=== PATIENT | female | born 1930 | race Caucasian/White ===

== ENCOUNTER 2019-01-23 19:36 | Inpatient (IN) | payer MEDICARE ==
--- NOTE | 2019-01-23 20:19 | EDM.PDOC ---
ED HPI GENERAL MEDICAL PROBLEM - General Chief Complaint: Chest Pain Stated Complaint: MED[facility] Time Seen by Provider: 01/23/19 20:14 Source of Information: Reports: Patient History Limitations: Reports: No Limitations - History of Present Illness INITIAL COMMENTS - FREE TEXT/NARRATIVE: pt arrived with pain or tightness in her chest ans she felt like her heart was racing. She had a ekg in the ambulance and it showed atrial fib in the 122 range. She did convert on her own in the ambulance. She arrived in a sinus rhythm with a rate of 74. Pt did take asa at home. She is not on any other blood thinner. Onset: Today, Sudden, Other (pt has had another episode of atrial fib when she was under anesthesia for her hip replacement. ) Duration: Hour(s): Location: Reports: Chest Associated Symptoms: Reports: Chest Pain, Other ( rapid heart beat. this did seem irregular to her. ) Treatments ROUTE DELIVERY CLERK: Reports: IV/IO, Other (see below) Other Treatments ROUTE DELIVERY CLERK: fluids - Related Data Allergies Allergy/AdvReac Type Severity Reaction Status Date / Time No Known Allergies Allergy Verified 01/13/15 08:36 Home Meds: Home Meds Aspirin [Aspirin EC] 325 mg PO DAILY 01/23/19 [History] Cyanocobalamin (Vitamin B-12) [B-12] 1,000 mcg PO DAILY 01/23/19 [History] Diphenhydram/PE/DM/Acetamin/GG [Daytime-Cold Zgbrccchr-Azs-Iwb] 1 tab PO PRN [History] Ergocalciferol (Vitamin D2) [Vitamin D2] 400 unit PO DAILY 01/23/19 [History] Escitalopram [Lexapro] 10 mg PO DAILY 01/23/19 [History] Metoprolol Tartrate 12.5 mg PO BID 01/23/19 [History] Triamterene/Hydrochlorothiazid [Triamterene-HCTZ 37.5-25 MG] 1 each PO DAILY [History] Past Medical History HEENT History: Reports: Impaired Vision, Macular Degeneration Cardiovascular History: Reports: High Cholesterol, Hypertension Gastrointestinal History: Reports: Other (See Below) Other Gastrointestinal History: colitis [employer]GER [employer] History: Reports: Musculoskeletal History: Reports: Arthritis - Past Surgical History Other HEENT Surgeries/Procedures: shots in her eyes Other Musculoskeletal Surgeries/Procedures:: surgery on neck many years ago Social & Family History - Tobacco Use Smoking Status *Q: Current Every Day Smoker Years of Tobacco use: 40 Packs/Tins Daily: 0.5 Used Tobacco, but Quit: No Second Hand Smoke Exposure: No - Caffeine Use Caffeine Use: Reports: None - Alcohol Use Days Per Week of Alcohol Use: 7 Number of Drinks Per Day: 2 Total Drinks Per Week: 14 - Recreational Drug Use Recreational Drug Use: No ED ROS GENERAL - Review of Systems Review Of Systems: See Below Constitutional: Reports: No Symptoms HEENT: Reports: No Symptoms Respiratory: Reports: Shortness of Breath, Other (pt was mildly sob when she had the rapid rhythm. ) Cardiovascular: Reports: Palpitations, Other ( chest tightness. ) Endocrine: Reports: No Symptoms GI/Abdominal: Reports: No Symptoms : Reports: No Symptoms Musculoskeletal: Reports: No Symptoms Skin: Reports: No Symptoms Neurological: Reports: Dizziness, Other (pt noticed this after arrival when she went to sit up. ) Psychiatric: Reports: No Symptoms ED EXAM, GENERAL - Physical Exam Exam: See Below Free Text/Narrative:: pt arrived with a history of a episode of atrial fib which converted in the ambulance. She had some chest tightness prior to conversion but that stopped when she converted. She was painfree on arrival. Exam Limited By: No Limitations General Appearance: Alert, Anxious Ears: Normal TMs Nose: Normal Inspection Throat/Mouth: Normal Inspection Head: Atraumatic Neck: Normal Inspection Respiratory/Chest: No Respiratory Distress Cardiovascular: Regular Rate, Rhythm, Other ( controlled rate. ) GI/Abdominal: Soft, Non-Tender (Female) Exam: Deferred Rectal (Female) Exam: Deferred Back Exam: Normal Inspection Extremities: Normal Inspection Neurological: Alert, Oriented, Normal Cognition Psychiatric: Normal Affect Course - Vital Signs Last Recorded V/S: Last Vital Signs Temp 35.8 C 01/23/19 19:51 Pulse 104 H 01/23/19 22:37 Resp 15 01/23/19 22:37 BP 161/105 H 01/23/19 22:37 Pulse Ox 96 01/23/19 22:37 Orthostatic Blood Pressure [ 169/76 Standing] Orthostatic Blood Pressure [ 157/88 Sitting] Orthostatic Blood Pressure [ 157/76 Supine] - Orders/Labs/Meds Orders: Active Orders 24 hr Category Date Time Status EKG Documentation Completion [RC] ASDIRECTED Care 01/23/19 19:49 Active Orthostatic Vital Signs [RC] ASDIRECTED Care 01/23/19 20:55 Active Sodium Chloride 0.9% [Normal Saline] 1,000 ml Med 01/23/19 20:30 Active IV ASDIRECTED EKG 12 Lead [EK] Routine Ther 01/23/19 19:48 Ordered Medication Orders Sodium Chloride (Normal Saline) 1,000 mls @ 250 mls/hr IV ASDIRECTED KEV Last Admin: 01/23/19 20:32 Dose: 250 mls/hr Labs: Laboratory Tests 01/23/19 01/23/19 01/23/19 Range/Units 19:48 19:48 20:23 WBC 10.5 (4.5-11.0) K/uL RBC 3.95 (3.30-5.50) M/uL Hgb 12.8 (12.0-15.0) g/dL Hct 38.2 (36.0-48.0) % MCV 97 (80-98) fL MCH 32 H (27-31) pg MCHC 34 (32-36) % Plt Count 269 (150-400) K/uL Neut % (Auto) 62 (36-66) % Lymph % (Auto) 25 (24-44) % [place] % (Auto) 12 H (2-6) % Eos % (Auto) 1 L (2-4) % Baso % (Auto) 0 (0-1) % Sodium 135 L (140-148) mmol/L Potassium 3.8 (3.6-5.2) mmol/L Chloride 98 L (100-108) mmol/L Carbon Dioxide 28 (21-32) mmol/L Anion Gap 12.8 (5.0-14.0) mmol/L BUN 9 (7-18) mg/dL Creatinine 0.5 L (0.6-1.0) mg/dL Est Cr Clr Drug Dosing 69.98 mL/min Estimated GFR (MDRD) > 60 (>60) Glucose 110 H (74-106) mg/dL Calcium 8.9 (8.5-10.1) mg/dL Total Bilirubin 0.2 (0.2-1.0) mg/dL AST 18 (15-37) U/L ALT 19 (12-78) U/L Alkaline Phosphatase 80 (46-116) U/L Troponin I (0.000-0.056) ng/mL Total Protein 6.6 (6.4-8.2) g/dL Albumin 3.4 (3.4-5.0) g/dL Globulin 3.2 (2.3-3.5) g/dL Albumin/Globulin Ratio 1.1 L (1.2-2.2) TSH, Ultra Sensitive 1.533 (0.358-3.740) uIU/mL Urine Color Urine Appearance Urine pH (4.5-8.0) Ur Specific [place] (1.008-1.030) Urine Protein (NEGATIVE) mg/dL Urine Glucose (UA) (NEGATIVE) mg/dL Urine Ketones (NEGATIVE) mg/dL Urine Occult Blood (NEGATIVE) Urine Nitrite (NEGATIVE) Urine Bilirubin (NEGATIVE) Urine Urobilinogen (NORMAL) mg/dL Ur Leukocyte Esterase (NEGATIVE) Urine RBC (0-5) Urine WBC (0-5) Ur Epithelial Cells Amorphous Sediment Urine Bacteria Urine Mucus 01/23/19 01/23/19 Range/Units 20:32 21:05 WBC (4.5-11.0) K/uL RBC (3.30-5.50) M/uL Hgb (12.0-15.0) g/dL Hct (36.0-48.0) % MCV (80-98) fL MCH (27-31) pg MCHC (32-36) % Plt Count (150-400) K/uL Neut % (Auto) (36-66) % Lymph % (Auto) (24-44) % [place] % (Auto) (2-6) % Eos % (Auto) (2-4) % Baso % (Auto) (0-1) % Sodium (140-148) mmol/L Potassium (3.6-5.2) mmol/L Chloride (100-108) mmol/L Carbon Dioxide (21-32) mmol/L Anion Gap (5.0-14.0) mmol/L BUN (7-18) mg/dL Creatinine (0.6-1.0) mg/dL Est Cr Clr Drug Dosing mL/min Estimated GFR (MDRD) (>60) Glucose (74-106) mg/dL Calcium (8.5-10.1) mg/dL Total Bilirubin (0.2-1.0) mg/dL AST (15-37) U/L ALT (12-78) U/L Alkaline Phosphatase (46-116) U/L Troponin I < 0.017 (0.000-0.056) ng/mL Total Protein (6.4-8.2) g/dL Albumin (3.4-5.0) g/dL Globulin (2.3-3.5) g/dL Albumin/Globulin Ratio (1.2-2.2) TSH, Ultra Sensitive (0.358-3.740) uIU/mL Urine Color Yellow Urine Appearance Clear Urine pH 8.0 (4.5-8.0) Ur Specific [place] 1.005 L (1.008-1.030) Urine Protein Trace (NEGATIVE) mg/dL Urine Glucose (UA) Normal (NEGATIVE) mg/dL Urine Ketones Negative (NEGATIVE) mg/dL Urine Occult Blood Trace (NEGATIVE) Urine Nitrite Negative (NEGATIVE) Urine Bilirubin Negative (NEGATIVE) Urine Urobilinogen Normal (NORMAL) mg/dL Ur Leukocyte Esterase Small (NEGATIVE) Urine RBC 0-5 (0-5) Urine WBC 0-5 (0-5) Ur Epithelial Cells Rare Amorphous Sediment Rare Urine Bacteria Not seen Urine Mucus Rare Meds: Medications Generic Name Dose Route Start Last Admin Trade Name Freq PRN Reason Stop Dose Admin Sodium Chloride 1,000 mls @ 250 mls/hr 01/23/19 20:30 01/23/19 20:32 Normal Saline IV 250 mls/hr ASDIRECTED KEV Administration Discontinued Medications Generic Name Dose Route Start Last Admin Trade Name Freq PRN Reason Stop Dose Admin Diltiazem HCl 10 mg 01/23/19 22:26 01/23/19 22:43 Diltiazem IVPUSH 01/23/19 22:27 10 mg ONETIME ONE Administration Metoprolol Tartrate 12.5 mg 01/23/19 21:49 01/23/19 21:55 Lopressor PO 01/23/19 21:50 12.5 mg ONETIME ONE Administration - Re-Assessments/Exams Free Text/Narrative Re-Assessment/Exam: 01/23/19 21:55 pt had normal looking lab work. She was in sinus rhythm on arrival and she has remained in sinus rhythm. She was given iv fluid and she was given metoprol 12.5 mg. Departure - Departure Time of Disposition: 21:57 Disposition: Admitted As Inpatient 66 Condition: Fair Clinical Impression: Atrial fibrillation Instructions: Atrial Fibrillation, [id number] Referrals: PCP,None [Primary Care Provider] - Forms: ED Department Discharge Care Plan Goals: atrial fib that converted on its own, increase the metorprol 2 tabs{12.5 tabs in the am and 1 tab in the pm, appt with Dr Godinez on Sunday in [place].just as the pt was ready to leave she went back into atrial fib with a rate of 120. She once again felt strange. At this point she was informed that she needed to be admitted. She was given a bolus of cardizem 10mg iv to see if she would convert again. - My Orders Last 24 Hours: My Active Orders 01/23/19 19:48 EKG 12 Lead [EK] Routine 01/23/19 19:49 EKG Documentation Completion [RC] ASDIRECTED 01/23/19 20:30 Sodium Chloride 0.9% [Normal Saline] 1,000 ml IV ASDIRECTED 01/23/19 20:55 Orthostatic Vital Signs [RC] ASDIRECTED - Assessment/Plan Last 24 Hours: My Active Orders 01/23/19 19:48 EKG 12 Lead [EK] Routine 01/23/19 19:49 EKG Documentation Completion [RC] ASDIRECTED 01/23/19 20:30 Sodium Chloride 0.9% [Normal Saline] 1,000 ml IV ASDIRECTED 01/23/19 20:55 Orthostatic Vital Signs [RC] ASDIRECTED
[2019-01-23] MEDS: Sodium Chloride 0.9% 1,000 ML IV SCH ×2 (20:32→22:57)
--- NOTE | 2019-01-23 20:50 | CRLCR ---
INDICATION: Atrial fibrillation. FINDINGS: An AP view of the chest was obtained. The cardiac silhouette and pulmonary vasculature are within normal limits. The lungs are clear bilaterally. There are atherosclerotic calcifications in the aorta. There is scoliosis and degenerative changes in the spine. IMPRESSION: No evidence of acute pulmonary disease. Dictated by Connor Honeycutt MD @ 01/23/2019 8:48:37 PM Dictated by: Connor Honeyuctt MD @ 01/23/2019 20:48:50 (Electronically Signed)
[2019-01-23] MEDS ORDERED: Metoprolol Tartrate 25 MG Tab PO ONE (21:49)
[2019-01-23] MEDS ORDERED: Diltiazem 25 MG/5 ML SDV IVPUSH ONE (22:26)
[2019-01-23] MEDS ORDERED: Diltiazem IR 30 MG Tab PO ONE (23:26)
--- NOTE | 2019-01-24 00:11 | PCM.HP ---
H&P History of Present Illness - General Date of Service: 01/23/19 Admit Problem/Dx: Admission Diagnosis/Problem Admission Diagnosis/Problem Atrial fibrillation Source of Information: Patient, EMS Notes Reviewed, Provider, RN History Limitations: Reports: No Limitations - History of Present Illness Initial Comments - Free Text/Narative: INITIAL COMMENTS - FREE TEXT/NARRATIVE: Arrived via EMS Mrs. Byrnes arrived with pain or tightness in her chest ans she felt like her heart was racing. She had a EKG in the ambulance and it showed atrial fib in the 122 range. She did convert on her own in the ambulance. She arrived in a sinus rhythm with a rate of 74. She took ASA at home. She is not on any other blood thinner. past history:Atrial fib when she was under anesthesia for her hip replacement. ER Course: Atrial fIb that converted on its own, planned to discharge to home with Son Gómez , with instructions to increase the Metoprol 2 tabs of 12.5 tabs in the am and 1 tab in the pm, appt with Dr Godinez on Sunday in [place]. Just as the pt was ready to leave she went back into Atrial Fib with a rate of 120. She once again felt strange. Denies chest pain, shortness of breath. At this point she was informed that she needed to be admitted. She was given a bolus of Cardizem 10mg IV to see if she would convert again. Continues to have Atrial Fib rate in 70 to 90. denies chest pain or shortness of breath. Vital signs P85 RR 14 B/P 144/75 O2 sat 95% on room air Consulted with Dr. Muro, Internal Medicine, Hospitalist, will plan to admit to ICU Med-Surg Overflow OBS for further monitoring. will give Diltiazem IR 60 mg every 6 hours, first dose given in ER discussed plan of care with Mrs. Byrnes, she agree to admission Observation. Onset of Symptoms: Reports: Today, Sudden Duration of Symptoms: Reports: Hour(s):, Constant Location: Reports: Generalized Quality: Reports: Other (concerns of racing heart beat and strange feeling in chest.) Severity: Moderate Improves with: Reports: Medication Worsens with: Reports: None Context: Reports: Other (sudden onset of A Fib without cause) Associated Symptoms: Reports: No Other Symptoms - Related Data Allergies/Adverse Reactions: Allergies Allergy/AdvReac Type Severity Reaction Status Date / Time No Known Allergies Allergy Verified 01/13/15 08:36 Home Medications: Home Meds Aspirin [Aspirin EC] 325 mg PO DAILY 01/23/19 [History] Cyanocobalamin (Vitamin B-12) [B-12] 1,000 mcg PO DAILY 01/23/19 [History] Diphenhydram/PE/DM/Acetamin/GG [Daytime-Cold Mbdcobljs-Jux-Ltw] 1 tab PO PRN [History] Ergocalciferol (Vitamin D2) [Vitamin D2] 400 unit PO DAILY 01/23/19 [History] Escitalopram [Lexapro] 10 mg PO DAILY 01/23/19 [History] Metoprolol Tartrate 12.5 mg PO BID 01/23/19 [History] Triamterene/Hydrochlorothiazid [Triamterene-HCTZ 37.5-25 MG] 1 each PO DAILY [History] Past Medical History HEENT History: Reports: Impaired Vision, Macular Degeneration Cardiovascular History: Reports: High Cholesterol, Hypertension Gastrointestinal History: Reports: Other (See Below) Other Gastrointestinal History: colitis S[employer] FIL[employer]ER History: Reports: Musculoskeletal History: Reports: Arthritis - Past Surgical History Other HEENT Surgeries/Procedures: shots in her eyes Other Musculoskeletal Surgeries/Procedures:: surgery on neck many years ago Social & Family History - Tobacco Use Smoking Status *Q: Current Every Day Smoker Years of Tobacco use: 40 Packs/Tins Daily: 0.5 Used Tobacco, but Quit: No Second Hand Smoke Exposure: No - Caffeine Use Caffeine Use: Reports: None - Alcohol Use Days Per Week of Alcohol Use: 7 Number of Drinks Per Day: 2 Total Drinks Per Week: 14 - Recreational Drug Use Recreational Drug Use: No - Living Situation & Occupation Living situation: Reports: , with Family Occupation: Retired (has her own home in [place], her Son Gómez lives with her. Has one Daughter in [place], her Oldest Son got sick and 3 years ago.) H&P Review of Systems - Review of Systems: Review Of Systems: See Below General: Reports: Other (no concerns at this time of admission. ) HEENT: Reports: No Symptoms Pulmonary: Reports: No Symptoms Cardiovascular: Reports: Palpitations Gastrointestinal: Reports: No Symptoms Genitourinary: Reports: No Symptoms Musculoskeletal: Reports: No Symptoms Skin: Reports: No Symptoms Psychiatric: Reports: No Symptoms Neurological: Reports: Dizziness (reports chronic dizziness. has been evaluated with no cause. ambulates with walker for stability.) Hematologic/Lymphatic: Reports: No Symptoms Immunologic: Reports: No Symptoms Exam - Exam Exam: See Below - Vital Signs Vital Signs: Last Vital Signs Temp 35.8 C 01/23/19 19:51 Pulse 85 01/23/19 23:35 Resp 14 01/23/19 23:35 BP 144/75 H 01/23/19 23:35 Pulse Ox 95 01/23/19 23:35 Orthostatic Blood Pressure [ 169/76 Standing] Orthostatic Blood Pressure [ 157/88 Sitting] Orthostatic Blood Pressure [ 157/76 Supine] Weight: 63.503 kg - Exam General: Alert, Oriented, 4 HEENT: PERRLA, Conjunctiva Clear, EACs Clear, EOMI, Hearing Intact, Mucosa Moist & [place], Nares Patent, Normal Nasal Septum, Posterior Pharynx Clear, TMs Clear, Glasses, Other (natural teeth present) Neck: Supple, Trachea Midline, 2 Lungs: Clear to Auscultation, Normal Respiratory Effort Cardiovascular: Irregular Rhythm GI/Abdominal Exam: Normal Bowel Sounds, Soft, Non-Tender, No Organomegaly, No Distention, No Abnormal Bruit, No Mass, Pelvis Stable (Female) Exam: Deferred Rectal (Female) Exam: Deferred Back Exam: Normal Inspection, Full Range of Motion, NT Extremities: Normal Inspection, Normal Range of Motion, Non-Tender, No Pedal Edema, Normal Capillary Refill Skin: Warm, Dry, Intact, Other (Lady Slipper tatto noted to right lower leg) Neurological: Reflexes Equal Bilateral, Strength Equal Bilateral, Normal Speech , Normal Tone Neuro Extensive - Mental Status: Alert, Oriented x3, Normal Mood/Affect, Normal Cognition Neuro Extensive - Motor, Sensory, Reflexes: CN II-XII Intact, Normal Gait, Normal Reflexes Psychiatric: Alert, Normal Affect, Normal Mood - Patient Data Lab Results Last 24 hrs: Laboratory Results - last 24 hr 01/23/19 01/23/19 01/23/19 Range/Units 19:48 19:48 20:23 WBC 10.5 (4.5-11.0) K/uL RBC 3.95 (3.30-5.50) M/uL Hgb 12.8 (12.0-15.0) g/dL Hct 38.2 (36.0-48.0) % MCV 97 (80-98) fL MCH 32 H (27-31) pg MCHC 34 (32-36) % Plt Count 269 (150-400) K/uL Neut % (Auto) 62 (36-66) % Lymph % (Auto) 25 (24-44) % [place] % (Auto) 12 H (2-6) % Eos % (Auto) 1 L (2-4) % Baso % (Auto) 0 (0-1) % Sodium 135 L (140-148) mmol/L Potassium 3.8 (3.6-5.2) mmol/L Chloride 98 L (100-108) mmol/L Carbon Dioxide 28 (21-32) mmol/L Anion Gap 12.8 (5.0-14.0) mmol/L BUN 9 (7-18) mg/dL Creatinine 0.5 L (0.6-1.0) mg/dL Est Cr Clr Drug Dosing 69.98 mL/min Estimated GFR (MDRD) > 60 (>60) Glucose 110 H (74-106) mg/dL Calcium 8.9 (8.5-10.1) mg/dL Total Bilirubin 0.2 (0.2-1.0) mg/dL AST 18 (15-37) U/L ALT 19 (12-78) U/L Alkaline Phosphatase 80 (46-116) U/L Troponin I (0.000-0.056) ng/mL Total Protein 6.6 (6.4-8.2) g/dL Albumin 3.4 (3.4-5.0) g/dL Globulin 3.2 (2.3-3.5) g/dL Albumin/Globulin Ratio 1.1 L (1.2-2.2) TSH, Ultra Sensitive 1.533 (0.358-3.740) uIU/mL Urine Color Urine Appearance Urine pH (4.5-8.0) Ur Specific [place] (1.008-1.030) Urine Protein (NEGATIVE) mg/dL Urine Glucose (UA) (NEGATIVE) mg/dL Urine Ketones (NEGATIVE) mg/dL Urine Occult Blood (NEGATIVE) Urine Nitrite (NEGATIVE) Urine Bilirubin (NEGATIVE) Urine Urobilinogen (NORMAL) mg/dL Ur Leukocyte Esterase (NEGATIVE) Urine RBC (0-5) Urine WBC (0-5) Ur Epithelial Cells Amorphous Sediment Urine Bacteria Urine Mucus 01/23/19 01/23/19 Range/Units 20:32 21:05 WBC (4.5-11.0) K/uL RBC (3.30-5.50) M/uL Hgb (12.0-15.0) g/dL Hct (36.0-48.0) % MCV (80-98) fL MCH (27-31) pg MCHC (32-36) % Plt Count (150-400) K/uL Neut % (Auto) (36-66) % Lymph % (Auto) (24-44) % [place] % (Auto) (2-6) % Eos % (Auto) (2-4) % Baso % (Auto) (0-1) % Sodium (140-148) mmol/L Potassium (3.6-5.2) mmol/L Chloride (100-108) mmol/L Carbon Dioxide (21-32) mmol/L Anion Gap (5.0-14.0) mmol/L BUN (7-18) mg/dL Creatinine (0.6-1.0) mg/dL Est Cr Clr Drug Dosing mL/min Estimated GFR (MDRD) (>60) Glucose (74-106) mg/dL Calcium (8.5-10.1) mg/dL Total Bilirubin (0.2-1.0) mg/dL AST (15-37) U/L ALT (12-78) U/L Alkaline Phosphatase (46-116) U/L Troponin I < 0.017 (0.000-0.056) ng/mL Total Protein (6.4-8.2) g/dL Albumin (3.4-5.0) g/dL Globulin (2.3-3.5) g/dL Albumin/Globulin Ratio (1.2-2.2) TSH, Ultra Sensitive (0.358-3.740) uIU/mL Urine Color Yellow Urine Appearance Clear Urine pH 8.0 (4.5-8.0) Ur Specific [place] 1.005 L (1.008-1.030) Urine Protein Trace (NEGATIVE) mg/dL Urine Glucose (UA) Normal (NEGATIVE) mg/dL Urine Ketones Negative (NEGATIVE) mg/dL Urine Occult Blood Trace (NEGATIVE) Urine Nitrite Negative (NEGATIVE) Urine Bilirubin Negative (NEGATIVE) Urine Urobilinogen Normal (NORMAL) mg/dL Ur Leukocyte Esterase Small (NEGATIVE) Urine RBC 0-5 (0-5) Urine WBC 0-5 (0-5) Ur Epithelial Cells Rare Amorphous Sediment Rare Urine Bacteria Not seen Urine Mucus Rare Result Diagrams: 01/23/19 19:48 01/23/19 19:48 EKG INTERPRETATION Rhythm: A-Fib - Problem List (1) Atrial fibrillation SNOMED Code(s): 40793291 ICD Code: I48.91 - UNSPECIFIED ATRIAL FIBRILLATION Status: Acute Priority : High Current Visit: Yes Qualifiers: Atrial fibrillation type: unspecified Qualified Code(s): I48.91 - Unspecified atrial fibrillation (2) Hypertension SNOMED Code(s): 55274839 ICD Code: I10 - ESSENTIAL (PRIMARY) HYPERTENSION Status: Acute Priority: High Current Visit: Yes Qualifiers: Hypertension type: essential hypertension Qualified Code(s): I10 - Essential (primary) hypertension Problem List Initiated/Reviewed/Updated: Yes Orders Last 24hrs: Active Orders 24 hr Category Date Time Status Patient Status Manage Transfer [TRANSFER] Routine ADT 01/23/19 23:51 Ordered EKG Documentation Completion [RC] ASDIRECTED Care 01/23/19 19:49 Active EKG Documentation Completion [RC] ASDIRECTED Care 01/23/19 23:02 Active Orthostatic Vital Signs [RC] ASDIRECTED Care 01/23/19 20:55 Active Sodium Chloride 0.9% [Normal Saline] 1,000 ml Med 01/23/19 20:30 Active IV ASDIRECTED Resuscitation Status Routine Resus Stat 01/23/19 23:53 Ordered EKG 12 Lead [EK] Routine Ther 01/23/19 19:48 Ordered EKG 12 Lead [EK] Routine Ther 01/23/19 23:01 Ordered Medication Orders Sodium Chloride (Normal Saline) 1,000 mls @ 250 mls/hr IV ASDIRECTED KEV Last Admin: 01/23/19 22:57 Dose: 250 mls/hr Infusion: 01/23/19 22:57 Dose: 250 mls/hr Admin: 01/23/19 20:32 Dose: 250 mls/hr Assessment/Plan Comment:: ASSESSMENT / PLAN: Atrial Fib. Mrs. Byrnes arrived with pain or tightness in her chest and she felt like her heart was racing. She had a EKG in the ambulance and it showed Atrial Fib in the 122 range. She did convert on her own in the ambulance. She arrived in a sinus rhythm with a rate of 74. She took ASA at home. She is not on any other blood thinner. past history:Atrial fib when she was under anesthesia for her hip replacement. ER Course: Atrial fIb that converted on its own, planned to discharge to home with Son Gómez , with instructions to increase the Metoprol 2 tabs of 12.5 tabs in the am and 1 tab in the pm, appt with Dr Godinez on Sunday in [place]. Just as the pt was ready to leave she went back into Atrial Fib with a rate of 120. She once again felt strange. Denies chest pain, shortness of breath. At this point she was informed that she needed to be admitted. She was given a bolus of Cardizem 10mg IV to see if she would convert again. Continues to have Atrial Fib rate in 70 to 100. denies chest pain or shortness of breath. Vital signs P85 RR 14 B/P 144/75 O2 sat 95% on room air Consulted with Dr. Muro, Internal Medicine, Hospitalist, will plan to admit to ICU Med-Surg Overflow OBS for further monitoring. will give Diltiazem IR 60 mg every 6 hours, first dose given in ER at 23:30 discussed plan of care with Mrs. Byrnes, she agree to admission. Atrial Fib. -Telemetry -Oxygen 2 l per NC continuous -PO Diltiazem IR 60 mg every 6 hours, first dose given at 2330 -IV hydration with NS at 100ml/hr -call Hospitalist for heart rate greater than 120 or if develops any chest pain or shortness of breath -am labs; cbc, bmp, Mg++ Hypertension -ordered home medication Maintenance issues -sleep - Melatonin 6mg po at HS prn. -Orders home meds: -Nutrition: Regular diet -Wagner catheter not indicated at this time -DVT:Lovenox 30mg subcut daily -GI Prophalaxis;IV Protonix 40mg daily CODE STATUS: Full Admission status: Admit to Observation -I expect this patient to stay less than 24 hours, not to exceed 96 hours for evaluation and management of this problem. Disposition: home with family Primary care provider:Dr. Godinez Hospitalist: Dr. Muro
[2019-01-24] MEDS ORDERED: Acetaminophen 325 MG Tab PO PRN (00:47)
[2019-01-24] MEDS ORDERED: Docusate Sodium 100 MG Cap PO PRN (00:47)
[2019-01-24] MEDS ORDERED: Bisacodyl 5 MG Tab PO PRN (00:47)
[2019-01-24] MEDS ORDERED: Morphine 2 MG/ML Syringe IVPUSH PRN (00:47)
[2019-01-24] MEDS ORDERED: Albuterol 0.083% 2.5 MG/3 ML Neb Soln NEB PRN (00:47)
[2019-01-24] MEDS ORDERED: Ondansetron 4 MG Tab.DIS PO PRN (00:47)
[2019-01-24] MEDS ORDERED: oxyCODONE 5 MG Tab PO PRN (00:47)
[2019-01-24] MEDS ORDERED: LORazepam 2 MG/ML SDV IV PRN (00:47)
[2019-01-24] MEDS ORDERED: Enoxaparin 40 MG/0.4 ML Syringe SUBCUT ONE (01:00)
[2019-01-24] MEDS: Sodium Chloride 0.9% 1,000 ML IV SCH ×3 (01:36→23:40)
[2019-01-24] MEDS ORDERED: Diltiazem IR 30 MG Tab PO SCH (06:00)
[2019-01-24] MEDS ORDERED: Pantoprazole 40 MG Vial IV SCH ×2 (08:00→09:00)
[2019-01-24] MEDS: Escitalopram 10 MG Tab PO SCH (08:46)
[2019-01-24] MEDS: Metoprolol Tartrate 25 MG Tab PO SCH ×2 (08:47→20:46)
[2019-01-24] MEDS: Hydrochlorothiazide/Triamterene 25-37.5 Tab PO SCH (08:48)
[2019-01-24] MEDS ORDERED: Potassium Chloride 20 MEQ Tab.ER PO ONE (09:00)
[2019-01-24] MEDS ORDERED: Magnesium Sulfate/Water 2 GM in Premix Bag 1 BAG IV ONE (09:00)
--- NOTE | 2019-01-24 09:45 | PCM.PN ---
- General Info Date of Service: 01/24/19 Subjective Update: There were no acute events overnight following admission. Patient was in atrial fibrillation most of the night but converted to sinus rhythm early this morning. Vital signs and heart rate have been stable since that time. Patient does not have any chest pain or palpitations. In general she feels well. Blood pressure has tolerated the short acting diltiazem. Electrolytes show mild hypokalemia and mild hypomagnesemia. Functional Status: Reports: Pain Controlled, Tolerating Diet - Review of Systems Cardiovascular: Denies: Chest Pain - Patient Data Vitals - Most Recent: Last Vital Signs Temp 37.0 C 01/24/19 08:00 Pulse 64 01/24/19 08:47 Resp 14 01/24/19 04:00 BP 143/53 H 01/24/19 08:47 Pulse Ox 95 01/24/19 07:43 Orthostatic Blood Pressure [ 169/76 Standing] Orthostatic Blood Pressure [ 157/88 Sitting] Orthostatic Blood Pressure [ 157/76 Supine] Weight - Most Recent: 63.503 kg I&O - Last 24 Hours: Intake & Output 01/23/19 01/24/19 01/24/19 22:59 06:59 14:59 Intake Total 376 661 500 Output Total 1800 100 Balance 376 -1139 400 Lab Results Last 24 Hours: Laboratory Results - last 24 hr 01/23/19 01/23/19 01/23/19 Range/Units 19:48 19:48 20:23 WBC 10.5 (4.5-11.0) K/uL RBC 3.95 (3.30-5.50) M/uL Hgb 12.8 (12.0-15.0) g/dL Hct 38.2 (36.0-48.0) % MCV 97 (80-98) fL MCH 32 H (27-31) pg MCHC 34 (32-36) % Plt Count 269 (150-400) K/uL Neut % (Auto) 62 (36-66) % Lymph % (Auto) 25 (24-44) % Dukes % (Auto) 12 H (2-6) % Eos % (Auto) 1 L (2-4) % Baso % (Auto) 0 (0-1) % Sodium 135 L (140-148) mmol/L Potassium 3.8 (3.6-5.2) mmol/L Chloride 98 L (100-108) mmol/L Carbon Dioxide 28 (21-32) mmol/L Anion Gap 12.8 (5.0-14.0) mmol/L BUN 9 (7-18) mg/dL Creatinine 0.5 L (0.6-1.0) mg/dL Est Cr Clr Drug Dosing 69.98 mL/min Estimated GFR (MDRD) > 60 (>60) Glucose 110 H (74-106) mg/dL Calcium 8.9 (8.5-10.1) mg/dL Magnesium (1.8-2.4) mg/dL Total Bilirubin 0.2 (0.2-1.0) mg/dL AST 18 (15-37) U/L ALT 19 (12-78) U/L Alkaline Phosphatase 80 (46-116) U/L Troponin I (0.000-0.056) ng/mL Total Protein 6.6 (6.4-8.2) g/dL Albumin 3.4 (3.4-5.0) g/dL Globulin 3.2 (2.3-3.5) g/dL Albumin/Globulin Ratio 1.1 L (1.2-2.2) TSH, Ultra Sensitive 1.533 (0.358-3.740) uIU/mL Urine Color Urine Appearance Urine pH (4.5-8.0) Ur Specific Mcdonald (1.008-1.030) Urine Protein (NEGATIVE) mg/dL Urine Glucose (UA) (NEGATIVE) mg/dL Urine Ketones (NEGATIVE) mg/dL Urine Occult Blood (NEGATIVE) Urine Nitrite (NEGATIVE) Urine Bilirubin (NEGATIVE) Urine Urobilinogen (NORMAL) mg/dL Ur Leukocyte Esterase (NEGATIVE) Urine RBC (0-5) Urine WBC (0-5) Ur Epithelial Cells Amorphous Sediment Urine Bacteria Urine Mucus 01/23/19 01/23/19 01/24/19 Range/Units 20:32 21:05 04:59 WBC (4.5-11.0) K/uL RBC (3.30-5.50) M/uL Hgb (12.0-15.0) g/dL Hct (36.0-48.0) % MCV (80-98) fL MCH (27-31) pg MCHC (32-36) % Plt Count (150-400) K/uL Neut % (Auto) (36-66) % Lymph % (Auto) (24-44) % Dukes % (Auto) (2-6) % Eos % (Auto) (2-4) % Baso % (Auto) (0-1) % Sodium 138 L (140-148) mmol/L Potassium 3.4 L (3.6-5.2) mmol/L Chloride 102 (100-108) mmol/L Carbon Dioxide 25 (21-32) mmol/L Anion Gap 14.4 H (5.0-14.0) mmol/L BUN 5 L (7-18) mg/dL Creatinine 0.4 L (0.6-1.0) mg/dL Est Cr Clr Drug Dosing 87.48 mL/min Estimated GFR (MDRD) > 60 (>60) Glucose 109 H (74-106) mg/dL Calcium 8.8 (8.5-10.1) mg/dL Magnesium 1.6 L (1.8-2.4) mg/dL Total Bilirubin (0.2-1.0) mg/dL AST (15-37) U/L ALT (12-78) U/L Alkaline Phosphatase (46-116) U/L Troponin I < 0.017 (0.000-0.056) ng/mL Total Protein (6.4-8.2) g/dL Albumin (3.4-5.0) g/dL Globulin (2.3-3.5) g/dL Albumin/Globulin Ratio (1.2-2.2) TSH, Ultra Sensitive (0.358-3.740) uIU/mL Urine Color Yellow Urine Appearance Clear Urine pH 8.0 (4.5-8.0) Ur Specific Mcdonald 1.005 L (1.008-1.030) Urine Protein Trace (NEGATIVE) mg/dL Urine Glucose (UA) Normal (NEGATIVE) mg/dL Urine Ketones Negative (NEGATIVE) mg/dL Urine Occult Blood Trace (NEGATIVE) Urine Nitrite Negative (NEGATIVE) Urine Bilirubin Negative (NEGATIVE) Urine Urobilinogen Normal (NORMAL) mg/dL Ur Leukocyte Esterase Small (NEGATIVE) Urine RBC 0-5 (0-5) Urine WBC 0-5 (0-5) Ur Epithelial Cells Rare Amorphous Sediment Rare Urine Bacteria Not seen Urine Mucus Rare 01/24/19 Range/Units 04:59 WBC 11.4 H (4.5-11.0) K/uL RBC 4.11 (3.30-5.50) M/uL Hgb 13.3 (12.0-15.0) g/dL Hct 39.6 (36.0-48.0) % MCV 96 (80-98) fL MCH 32 H (27-31) pg MCHC 34 (32-36) % Plt Count 296 (150-400) K/uL Neut % (Auto) 58 (36-66) % Lymph % (Auto) 29 (24-44) % Dukes % (Auto) 11 H (2-6) % Eos % (Auto) 1 L (2-4) % Baso % (Auto) 0 (0-1) % Sodium (140-148) mmol/L Potassium (3.6-5.2) mmol/L Chloride (100-108) mmol/L Carbon Dioxide (21-32) mmol/L Anion Gap (5.0-14.0) mmol/L BUN (7-18) mg/dL Creatinine (0.6-1.0) mg/dL Est Cr Clr Drug Dosing mL/min Estimated GFR (MDRD) (>60) Glucose (74-106) mg/dL Calcium (8.5-10.1) mg/dL Magnesium (1.8-2.4) mg/dL Total Bilirubin (0.2-1.0) mg/dL AST (15-37) U/L ALT (12-78) U/L Alkaline Phosphatase (46-116) U/L Troponin I (0.000-0.056) ng/mL Total Protein (6.4-8.2) g/dL Albumin (3.4-5.0) g/dL Globulin (2.3-3.5) g/dL Albumin/Globulin Ratio (1.2-2.2) TSH, Ultra Sensitive (0.358-3.740) uIU/mL Urine Color Urine Appearance Urine pH (4.5-8.0) Ur Specific Mcdonald (1.008-1.030) Urine Protein (NEGATIVE) mg/dL Urine Glucose (UA) (NEGATIVE) mg/dL Urine Ketones (NEGATIVE) mg/dL Urine Occult Blood (NEGATIVE) Urine Nitrite (NEGATIVE) Urine Bilirubin (NEGATIVE) Urine Urobilinogen (NORMAL) mg/dL Ur Leukocyte Esterase (NEGATIVE) Urine RBC (0-5) Urine WBC (0-5) Ur Epithelial Cells Amorphous Sediment Urine Bacteria Urine Mucus Med Orders - Current: Current Medications Acetaminophen (Tylenol) 650 mg PO Q4H PRN PRN Reason: Pain (Mild 1-3)/fever Albuterol (Proventil Neb Soln) 2.5 mg NEB Q4H PRN PRN Reason: Shortness Of Breath/wheezing Bisacodyl (Dulcolax) 5 mg PO DAILY PRN PRN Reason: Constipation Diltiazem HCl (Cardizem Cd) 180 mg PO ONETIME ONE Stop: 01/24/19 13:01 Diltiazem HCl (Cardizem Cd) 180 mg PO DAILY [facility] Docusate Sodium (Colace) 100 mg PO BID PRN PRN Reason: Constipation Enoxaparin Sodium (Lovenox) 40 mg SUBCUT Q24H [facility] Escitalopram Oxalate (Lexapro) 10 mg PO DAILY [facility] Last Admin: 01/24/19 08:46 Dose: 10 mg Sodium Chloride (Normal Saline) 1,000 mls @ 100 mls/hr IV ASDIRECTED [facility] Last Admin: 01/24/19 01:36 Dose: 100 mls/hr Magnesium Sulfate 2 gm/ Premix 50 mls @ 12.5 mls/hr IV ONETIME ONE Stop: 01/24/19 12:59 Last Admin: 01/24/19 08:47 Dose: 12.5 mls/hr Lorazepam (Ativan) 1 mg IV Q6H PRN PRN Reason: Nausea/Vomiting Melatonin (Melatonin) 6 mg PO BEDTIME PRN PRN Reason: Insomnia Metoprolol Tartrate (Lopressor) 12.5 mg PO BID [facility] Last Admin: 01/24/19 08:47 Dose: 12.5 mg Morphine Sulfate (Morphine) 2 mg IVPUSH Q2H PRN PRN Reason: Pain (severe 7-10) Ondansetron HCl (Zofran Odt) 4 mg PO Q6H PRN PRN Reason: Nausea able to take PO Oxycodone HCl (Oxycodone) 5 mg PO Q4H PRN PRN Reason: Pain (moderate 4-6) Triamterene/HCTZ (Maxzide 25-37.5 Mg) 1 each PO DAILY [facility] Last Admin: 01/24/19 08:48 Dose: 1 each Discontinued Medications Diltiazem HCl (Diltiazem) 10 mg IVPUSH ONETIME ONE Stop: 01/23/19 22:27 Last Admin: 01/23/19 22:43 Dose: 10 mg Diltiazem HCl (Cardizem) 60 mg PO ONETIME ONE Stop: 01/23/19 23:27 Last Admin: 01/23/19 23:55 Dose: 60 mg Diltiazem HCl (Cardizem) 60 mg PO Q6H [facility] Last Admin: 01/24/19 06:10 Dose: 60 mg Enoxaparin Sodium (Lovenox) 40 mg SUBCUT ONETIME ONE Stop: 01/24/19 01:01 Last Admin: 01/24/19 01:35 Dose: 40 mg Sodium Chloride (Normal Saline) 1,000 mls @ 250 mls/hr IV ASDIRECTED [facility] Last Admin: 01/23/19 22:57 Dose: 250 mls/hr Metoprolol Tartrate (Lopressor) 12.5 mg PO ONETIME ONE Stop: 01/23/19 21:50 Last Admin: 01/23/19 21:55 Dose: 12.5 mg Pantoprazole Sodium (Protonix Iv) 40 mg IV Q24H [facility] Pantoprazole Sodium (Protonix Iv) 40 mg IV Q24H [facility] Last Admin: 01/24/19 08:48 Dose: 40 mg Potassium Chloride (Klor-Con M20) 40 meq PO ONETIME ONE Stop: 01/24/19 09:01 Last Admin: 01/24/19 08:46 Dose: 40 meq - Exam Quality Assessment: No: Supplemental Oxygen General: Alert, Oriented, Cooperative, No Acute Distress Neck: Supple Lungs: Clear to Auscultation, Normal Respiratory Effort Cardiovascular: Regular Rate, Regular Rhythm, No Murmurs Extremities: No Pedal Edema. No: Increased Warmth Psy/Mental Status: Alert, Normal Affect - Problem List Review Problem List Initiated/Reviewed/Updated: Yes - My Orders Last 24 Hours: My Active Orders 01/24/19 09:00 Magnesium Sulfate/Water [Magnesium Sulfate 2 GM in Water 50 ML] 2 gm Premix Bag 1 bag IV ONETIME 01/24/19 13:00 Diltiazem [Cardizem CD] 180 mg PO ONETIME ONE 01/25/19 09:00 Diltiazem [Cardizem CD] 180 mg PO DAILY - Plan Plan:: ASSESSMENT / PLAN: Paroxysmal atrial fibrillation - inverted the sinus rhythm early this morning and has remained stable since that time. No active symptoms. Vital signs are all stable. -Transition to long-acting diltiazem -Cardiac monitoring -Supplement potassium and magnesium Hypertension - blood pressure acceptable at this time. -ordered home medication Maintenance issues -sleep - Melatonin 6mg po at HS prn. -Nutrition: Regular diet -DVT:Lovenox 30mg subcut daily -GI Prophalaxis; not indicated CODE STATUS: Full Admission status: Admit to Observation -I expect this patient to stay less than 24 hours, not to exceed 96 hours for evaluation and management of this problem. Disposition: I would anticipate discharge to home tomorrow Alexsander Muro M.D.
[2019-01-24] MEDS ORDERED: Diltiazem 180 MG Cap.CD PO ONE (13:00)
[2019-01-24] MEDS ORDERED: Diltiazem 120 MG Cap.CD PO ONE (17:39)
[2019-01-24] MEDS: Melatonin 3 MG Tab PO PRN (20:47)
[2019-01-24] MEDS: Enoxaparin 40 MG/0.4 ML Syringe SUBCUT SCH (20:47)
[2019-01-25] MEDS ORDERED: Diltiazem 25 MG/5 ML SDV IVPUSH ONE (07:51)
[2019-01-25] MEDS: Escitalopram 10 MG Tab PO SCH (08:03)
[2019-01-25] MEDS: Metoprolol Tartrate 25 MG Tab PO SCH ×2 (08:03→20:26)
[2019-01-25] MEDS: Hydrochlorothiazide/Triamterene 25-37.5 Tab PO SCH (08:04)
[2019-01-25] MEDS ORDERED: Sodium Chloride 0.9% 1,000 ML IV SCH (08:54)
--- NOTE | 2019-01-25 08:56 | PCM.PN ---
- General Info Date of Service: 01/25/19 Subjective Update: There were no acute events overnight. This morning while the patient was up walking she went back and atrial fibrillation with a rapid ventricular response. She had mild symptoms of palpitations at the time but no chest pain or shortness of breath. Vital signs have otherwise been stable. No lower extremity edema. No fevers. She is frustrated that after a good 24 hours she is now back into atrial fibrillation. Functional Status: Reports: Pain Controlled, Tolerating Diet - Review of Systems Cardiovascular: Denies: Chest Pain, Palpitations - Patient Data Vitals - Most Recent: Last Vital Signs Temp 37.0 C 01/25/19 08:00 Pulse 132 H 01/25/19 08:03 Resp 19 01/25/19 08:00 BP 128/63 01/25/19 08:03 Pulse Ox 95 01/25/19 08:00 Orthostatic Blood Pressure [ 169/76 Standing] Orthostatic Blood Pressure [ 157/88 Sitting] Orthostatic Blood Pressure [ 157/76 Supine] Weight - Most Recent: 63.503 kg I&O - Last 24 Hours: Intake & Output 01/24/19 01/25/19 01/25/19 22:59 06:59 14:59 Intake Total 1275 360 Output Total 250 400 Balance 1025 -40 Med Orders - Current: Current Medications Acetaminophen (Tylenol) 650 mg PO Q4H PRN PRN Reason: Pain (Mild 1-3)/fever Albuterol (Proventil Neb Soln) 2.5 mg NEB Q4H PRN PRN Reason: Shortness Of Breath/wheezing Bisacodyl (Dulcolax) 5 mg PO DAILY PRN PRN Reason: Constipation Docusate Sodium (Colace) 100 mg PO BID PRN PRN Reason: Constipation Enoxaparin Sodium (Lovenox) 40 mg SUBCUT Q24H [facility] Last Admin: 01/24/19 20:47 Dose: 40 mg Escitalopram Oxalate (Lexapro) 10 mg PO DAILY [facility] Last Admin: 01/25/19 08:03 Dose: 10 mg Sodium Chloride (Normal Saline) 1,000 mls @ 100 mls/hr IV ASDIRECTED [facility] Last Admin: 01/24/19 23:40 Dose: 100 mls/hr Diltiazem HCl 125 mg/ Dextrose (/Water) 125 mls @ 5 mls/hr IV TITRATE [facility]; Protocol Lorazepam (Ativan) 1 mg IV Q6H PRN PRN Reason: Nausea/Vomiting Melatonin (Melatonin) 6 mg PO BEDTIME PRN PRN Reason: Insomnia Last Admin: 01/24/19 20:47 Dose: 6 mg Metoprolol Tartrate (Lopressor) 12.5 mg PO BID [facility] Last Admin: 01/25/19 08:03 Dose: 12.5 mg Morphine Sulfate (Morphine) 2 mg IVPUSH Q2H PRN PRN Reason: Pain (severe 7-10) Ondansetron HCl (Zofran Odt) 4 mg PO Q6H PRN PRN Reason: Nausea able to take PO Oxycodone HCl (Oxycodone) 5 mg PO Q4H PRN PRN Reason: Pain (moderate 4-6) Triamterene/HCTZ (Maxzide 25-37.5 Mg) 1 each PO DAILY [facility] Last Admin: 01/25/19 08:04 Dose: 1 each Discontinued Medications Diltiazem HCl (Diltiazem) 10 mg IVPUSH ONETIME ONE Stop: 01/23/19 22:27 Last Admin: 01/23/19 22:43 Dose: 10 mg Diltiazem HCl (Cardizem) 60 mg PO ONETIME ONE Stop: 01/23/19 23:27 Last Admin: 01/23/19 23:55 Dose: 60 mg Diltiazem HCl (Cardizem) 60 mg PO Q6H [facility] Last Admin: 01/24/19 06:10 Dose: 60 mg Diltiazem HCl (Cardizem Cd) 180 mg PO ONETIME ONE Stop: 01/24/19 13:01 Last Admin: 01/24/19 16:52 Dose: Not Given Diltiazem HCl (Cardizem Cd) 180 mg PO DAILY [facility] Diltiazem HCl (Cardizem Cd) 120 mg PO ONETIME ONE Stop: 01/24/19 17:40 Last Admin: 01/24/19 18:42 Dose: 120 mg Diltiazem HCl (Diltiazem) 10 mg IVPUSH ONETIME ONE Stop: 01/25/19 07:52 Last Admin: 01/25/19 07:59 Dose: 10 mg Enoxaparin Sodium (Lovenox) 40 mg SUBCUT ONETIME ONE Stop: 01/24/19 01:01 Last Admin: 01/24/19 01:35 Dose: 40 mg Sodium Chloride (Normal Saline) 1,000 mls @ 250 mls/hr IV ASDIRECTED [facility] Last Admin: 01/23/19 22:57 Dose: 250 mls/hr Magnesium Sulfate 2 gm/ Premix 50 mls @ 12.5 mls/hr IV ONETIME ONE Stop: 01/24/19 12:59 Last Admin: 01/24/19 08:47 Dose: 12.5 mls/hr Metoprolol Tartrate (Lopressor) 12.5 mg PO ONETIME ONE Stop: 01/23/19 21:50 Last Admin: 01/23/19 21:55 Dose: 12.5 mg Pantoprazole Sodium (Protonix Iv) 40 mg IV Q24H [facility] Pantoprazole Sodium (Protonix Iv) 40 mg IV Q24H [facility] Last Admin: 01/24/19 08:48 Dose: 40 mg Potassium Chloride (Klor-Con M20) 40 meq PO ONETIME ONE Stop: 01/24/19 09:01 Last Admin: 01/24/19 08:46 Dose: 40 meq - Exam Quality Assessment: No: Supplemental Oxygen General: Alert, Oriented, Cooperative, No Acute Distress Lungs: Clear to Auscultation, Normal Respiratory Effort Cardiovascular: No Murmurs, Irregular Rhythm, Tachycardia GI/Abdominal Exam: Soft, No Distention Extremities: Pedal Edema (trace bilateral ankle edema). No: Increased Warmth Skin: Warm, Dry Psy/Mental Status: Alert, Normal Affect - Problem List Review Problem List Initiated/Reviewed/Updated: Yes - My Orders Last 24 Hours: My Active Orders 01/25/19 08:52 Transfer Patient (Change bed) [ADT] Routine 01/25/19 08:54 BASIC METABOLIC PANEL,BMP [CHEM] Urgent MAGNESIUM [CHEM] Urgent Sodium Chloride 0.9% [Normal Saline] 1,000 ml IV ASDIRECTED 01/25/19 08:55 Admission Status [Patient Status] [ADT] Routine 01/25/19 09:00 Diltiazem 125MG in D5W @ 5 MG/HR(125ml) Diltiazem 125 mg Dextrose 5% in Water 100 ml IV TITRATE - Plan Plan:: ASSESSMENT / PLAN: Paroxysmal atrial fibrillation - she is now back in atrial fibrillation for the second time during the hospital stay and third time and about 36 hours. Diltiazem infusion will be initiated. Hopefully we can convert her back and transition to long-acting diltiazem again. Exam is benign otherwise and there is no evidence for infection. Exact cause for her episodes is not entirely clear. -Diltiazem bolus followed by infusion -Cardiac monitoring -Supplement potassium and magnesium -Echocardiogram when available Hypertension - blood pressure acceptable at this time. -ordered home medication Maintenance issues -sleep - Melatonin 6mg po at HS prn. -Nutrition: Regular diet -DVT:Lovenox 30mg subcut daily -GI Prophalaxis; not indicated CODE STATUS: Full Admission status - patient now has her third recurrence of atrial fibrillation in the past 36 hours. She will be transitioned to inpatient at this time. I would expect that it will take at least 2 midnights to control her heart rates and find a suitable controlling medication as well as consideration for an echocardiogram. Disposition: I would anticipate discharge to home after the hospital stay Alexsander Muro M.D.
[2019-01-25] MEDS ORDERED: Diltiazem 180 MG Cap.CD PO SCH (09:00)
[2019-01-25] MEDS ORDERED: Diltiazem 180 MG Cap.CD PO ONE (13:10)
[2019-01-25] MEDS: Magnesium Sulfate/Water 2 GM in Premix Bag 1 BAG IV SCH ×2 (13:28→19:21)
[2019-01-25] MEDS ORDERED: Potassium Chloride 20 MEQ Tab.ER PO ONE (13:30)
[2019-01-25] MEDS: Enoxaparin 40 MG/0.4 ML Syringe SUBCUT SCH (20:24)
[2019-01-25] MEDS: Melatonin 3 MG Tab PO PRN (20:26)
[2019-01-26] MEDS: Metoprolol Tartrate 25 MG Tab PO SCH ×2 (08:48→21:49)
[2019-01-26] MEDS: Escitalopram 10 MG Tab PO SCH (08:48)
[2019-01-26] MEDS: Hydrochlorothiazide/Triamterene 25-37.5 Tab PO SCH (08:49)
[2019-01-26] MEDS: Diltiazem 180 MG Cap.CD PO SCH (09:08)
--- NOTE | 2019-01-26 10:06 | PCM.PN ---
- General Info Date of Service: 01/26/19 Subjective Update: There were no acute events overnight. Patient did convert to sinus rhythm yesterday afternoon and has been transitioned to long-acting diltiazem. No chest pain or palpitations. She did go for a walk today without significant symptoms. No fevers. Functional Status: Reports: Pain Controlled, Tolerating Diet - Review of Systems Pulmonary: Denies: Shortness of Breath Cardiovascular: Denies: Chest Pain - Patient Data Vitals - Most Recent: Last Vital Signs Temp 36.0 C 01/26/19 07:28 Pulse 64 01/26/19 08:48 Resp 15 01/26/19 07:28 BP 140/65 01/26/19 08:48 Pulse Ox 95 01/26/19 07:28 Orthostatic Blood Pressure [ 169/76 Standing] Orthostatic Blood Pressure [ 157/88 Sitting] Orthostatic Blood Pressure [ 157/76 Supine] Weight - Most Recent: 63.503 kg I&O - Last 24 Hours: Intake & Output 01/25/19 01/26/19 01/26/19 22:59 06:59 14:59 Intake Total 290 300 Balance 290 300 Med Orders - Current: Current Medications Acetaminophen (Tylenol) 650 mg PO Q4H PRN PRN Reason: Pain (Mild 1-3)/fever Albuterol (Proventil Neb Soln) 2.5 mg NEB Q4H PRN PRN Reason: Shortness Of Breath/wheezing Bisacodyl (Dulcolax) 5 mg PO DAILY PRN PRN Reason: Constipation Diltiazem HCl (Cardizem Cd) 180 mg PO DAILY [facility] Last Admin: 01/26/19 09:08 Dose: 180 mg Docusate Sodium (Colace) 100 mg PO BID PRN PRN Reason: Constipation Enoxaparin Sodium (Lovenox) 40 mg SUBCUT Q24H [facility] Last Admin: 01/25/19 20:24 Dose: 40 mg Escitalopram Oxalate (Lexapro) 10 mg PO DAILY [facility] Last Admin: 01/26/19 08:48 Dose: 10 mg Lorazepam (Ativan) 1 mg IV Q6H PRN PRN Reason: Nausea/Vomiting Melatonin (Melatonin) 6 mg PO BEDTIME PRN PRN Reason: Insomnia Last Admin: 01/25/19 20:26 Dose: 6 mg Metoprolol Tartrate (Lopressor) 25 mg PO BID [facility] Last Admin: 01/26/19 08:48 Dose: 25 mg Morphine Sulfate (Morphine) 2 mg IVPUSH Q2H PRN PRN Reason: Pain (severe 7-10) Ondansetron HCl (Zofran Odt) 4 mg PO Q6H PRN PRN Reason: Nausea able to take PO Oxycodone HCl (Oxycodone) 5 mg PO Q4H PRN PRN Reason: Pain (moderate 4-6) Triamterene/HCTZ (Maxzide 25-37.5 Mg) 1 each PO DAILY [facility] Last Admin: 01/26/19 08:49 Dose: 1 each Discontinued Medications Diltiazem HCl (Diltiazem) 10 mg IVPUSH ONETIME ONE Stop: 01/23/19 22:27 Last Admin: 01/23/19 22:43 Dose: 10 mg Diltiazem HCl (Cardizem) 60 mg PO ONETIME ONE Stop: 01/23/19 23:27 Last Admin: 01/23/19 23:55 Dose: 60 mg Diltiazem HCl (Cardizem) 60 mg PO Q6H [facility] Last Admin: 01/24/19 06:10 Dose: 60 mg Diltiazem HCl (Cardizem Cd) 180 mg PO ONETIME ONE Stop: 01/24/19 13:01 Last Admin: 01/24/19 16:52 Dose: Not Given Diltiazem HCl (Cardizem Cd) 180 mg PO DAILY [facility] Diltiazem HCl (Cardizem Cd) 120 mg PO ONETIME ONE Stop: 01/24/19 17:40 Last Admin: 01/24/19 18:42 Dose: 120 mg Diltiazem HCl (Diltiazem) 10 mg IVPUSH ONETIME ONE Stop: 01/25/19 07:52 Last Admin: 01/25/19 07:59 Dose: 10 mg Diltiazem HCl (Cardizem Cd) 180 mg PO ONETIME ONE Stop: 01/25/19 13:11 Last Admin: 01/25/19 13:19 Dose: 180 mg Enoxaparin Sodium (Lovenox) 40 mg SUBCUT ONETIME ONE Stop: 01/24/19 01:01 Last Admin: 01/24/19 01:35 Dose: 40 mg Sodium Chloride (Normal Saline) 1,000 mls @ 250 mls/hr IV ASDIRECTED [facility] Last Admin: 01/23/19 22:57 Dose: 250 mls/hr Sodium Chloride (Normal Saline) 1,000 mls @ 100 mls/hr IV ASDIRECTED [facility] Last Admin: 01/24/19 23:40 Dose: 100 mls/hr Magnesium Sulfate 2 gm/ Premix 50 mls @ 12.5 mls/hr IV ONETIME ONE Stop: 01/24/19 12:59 Last Admin: 01/24/19 08:47 Dose: 12.5 mls/hr Diltiazem HCl 125 mg/ Dextrose (/Water) 125 mls @ 5 mls/hr IV TITRATE [facility]; Protocol Stop: 01/25/19 14:30 Last Admin: 01/25/19 09:25 Dose: 5 mg/hr, 5 mls/hr Sodium Chloride (Normal Saline) 1,000 mls @ 25 mls/hr IV ASDIRECTED [facility] Stop: 01/25/19 14:30 Magnesium Sulfate 2 gm/ Premix 50 mls @ 25 mls/hr IV Q6H [facility] Stop: 01/25/19 21:29 Last Admin: 01/25/19 19:21 Dose: 25 mls/hr Metoprolol Tartrate (Lopressor) 12.5 mg PO ONETIME ONE Stop: 01/23/19 21:50 Last Admin: 01/23/19 21:55 Dose: 12.5 mg Metoprolol Tartrate (Lopressor) 12.5 mg PO BID [facility] Last Admin: 01/25/19 08:03 Dose: 12.5 mg Pantoprazole Sodium (Protonix Iv) 40 mg IV Q24H [facility] Pantoprazole Sodium (Protonix Iv) 40 mg IV Q24H [facility] Last Admin: 01/24/19 08:48 Dose: 40 mg Potassium Chloride (Klor-Con M20) 40 meq PO ONETIME ONE Stop: 01/24/19 09:01 Last Admin: 01/24/19 08:46 Dose: 40 meq Potassium Chloride (Klor-Con M20) 40 meq PO ONETIME ONE Stop: 01/25/19 13:31 Last Admin: 01/25/19 13:19 Dose: 40 meq - Exam Quality Assessment: No: Supplemental Oxygen General: Alert, Oriented, Cooperative, No Acute Distress Lungs: Normal Respiratory Effort Cardiovascular: Regular Rate, Regular Rhythm GI/Abdominal Exam: Soft, No Distention Extremities: No Pedal Edema Psy/Mental Status: Alert, Normal Affect - Problem List Review Problem List Initiated/Reviewed/Updated: Yes - My Orders Last 24 Hours: My Active Orders 01/25/19 21:00 Metoprolol Tartrate [Lopressor] 25 mg PO BID 01/26/19 09:00 Diltiazem [Cardizem CD] 180 mg PO DAILY 01/26/19 09:30 Transfer Patient (Change bed) [ADT] Routine 01/27/19 05:00 BASIC METABOLIC PANEL,BMP [CHEM] Timed 01/27/19 07:00 Echo Comp wo Cont [US] Routine - Plan Plan:: ASSESSMENT / PLAN: Paroxysmal atrial fibrillation - several episodes of atrial fibrillation, currently in sinus rhythm. Tolerating long-acting diltiazem so far. We did discuss discharge home and outpatient echo versus additional cardiac monitoring and echocardiogram in the morning. Patient would prefer to complete the workup and then go home tomorrow. -continue long-acting diltiazem -Cardiac monitoring -Supplement potassium and magnesium -Echocardiogram in the morning Hypertension - blood pressure acceptable at this time. -ordered home medication Maintenance issues -sleep - Melatonin 6mg po at HS prn. -Nutrition: Regular diet -DVT:Lovenox 30mg subcut daily -GI Prophalaxis; not indicated CODE STATUS: Full Admission status - patient now has her third recurrence of atrial fibrillation in the past 36 hours. She will be transitioned to inpatient at this time. I would expect that it will take at least 2 midnights to control her heart rates and find a suitable controlling medication as well as consideration for an echocardiogram. Disposition: I would anticipate discharge to home after the hospital stay, likely tomorrow if stable overnight Alexsander Muro M.D.
[2019-01-26] MEDS: Diltiazem IR 30 MG Tab PO SCH ×2 (17:23→21:56)
[2019-01-26] MEDS: Enoxaparin 40 MG/0.4 ML Syringe SUBCUT SCH (21:46)
[2019-01-26] MEDS: Melatonin 3 MG Tab PO PRN (21:56)
[2019-01-27] MEDS: Diltiazem IR 30 MG Tab PO SCH ×2 (05:41→13:37)
[2019-01-27] MEDS: Escitalopram 10 MG Tab PO SCH (10:08)
[2019-01-27] MEDS ORDERED: Diltiazem 180 MG Cap.CD PO SCH (12:45)
[2019-01-27] MEDS: Metoprolol Tartrate 25 MG Tab PO SCH ×2 (13:26→21:22)
[2019-01-27] MEDS ORDERED: Diltiazem 120 MG Cap.CD PO SCH (13:29)
[2019-01-27] MEDS: Hydrochlorothiazide/Triamterene 25-37.5 Tab PO SCH (13:37)
[2019-01-27] MEDS: Diltiazem 180 MG Cap.CD PO SCH (13:37)
[2019-01-27] MEDS: Diltiazem 120 MG Cap.CD PO SCH (14:15)
--- NOTE | 2019-01-27 15:58 | PCM.PN ---
- General Info Date of Service: 01/27/19 Subjective Update: Ms. Byrnes has been managed for atrial fibrillation with rapid ventricular response. This morning she did have an episode of hypotension, minimally symptomatic. Rate control has been good with current therapy. Functional Status: Reports: Tolerating Diet, Ambulating, Urinating - Review of Systems General: Reports: Weakness. Denies: Fever, Chills Pulmonary: Reports: No Symptoms Cardiovascular: Reports: No Symptoms Gastrointestinal: Reports: No Symptoms - Patient Data Vitals - Most Recent: Last Vital Signs Temp 98.8 F 01/27/19 12:49 Pulse 66 01/27/19 14:15 Resp 16 01/27/19 12:49 BP 115/51 L 01/27/19 14:15 Pulse Ox 93 L 01/27/19 12:49 Orthostatic Blood Pressure [ 169/76 Standing] Orthostatic Blood Pressure [ 157/88 Sitting] Orthostatic Blood Pressure [ 157/76 Supine] Weight - Most Recent: 140 lb I&O - Last 24 Hours: Intake & Output 01/27/19 01/27/19 01/27/19 06:59 14:59 22:59 Intake Total 500 840 Balance 500 840 Lab Results Last 24 Hours: Laboratory Results - last 24 hr 01/27/19 Range/Units 06:21 Sodium 139 L (140-148) mmol/L Potassium 3.7 (3.6-5.2) mmol/L Chloride 104 (100-108) mmol/L Carbon Dioxide 24 (21-32) mmol/L Anion Gap 14.7 H (5.0-14.0) mmol/L BUN 14 (7-18) mg/dL Creatinine 0.5 L (0.6-1.0) mg/dL Est Cr Clr Drug Dosing 69.87 mL/min Estimated GFR (MDRD) > 60 (>60) Glucose 101 (74-106) mg/dL Calcium 8.8 (8.5-10.1) mg/dL Med Orders - Current: Current Medications Acetaminophen (Tylenol) 650 mg PO Q4H PRN PRN Reason: Pain (Mild 1-3)/fever Albuterol (Proventil Neb Soln) 2.5 mg NEB Q4H PRN PRN Reason: Shortness Of Breath/wheezing Bisacodyl (Dulcolax) 5 mg PO DAILY PRN PRN Reason: Constipation Diltiazem HCl (Cardizem Cd) 240 mg PO DAILY [facility] Last Admin: 01/27/19 14:15 Dose: 240 mg Docusate Sodium (Colace) 100 mg PO BID PRN PRN Reason: Constipation Enoxaparin Sodium (Lovenox) 40 mg SUBCUT Q24H [facility] Last Admin: 01/26/19 21:46 Dose: 40 mg Escitalopram Oxalate (Lexapro) 10 mg PO DAILY [facility] Last Admin: 01/27/19 10:08 Dose: 10 mg Lorazepam (Ativan) 1 mg IV Q6H PRN PRN Reason: Nausea/Vomiting Melatonin (Melatonin) 6 mg PO BEDTIME PRN PRN Reason: Insomnia Last Admin: 01/26/19 21:56 Dose: 6 mg Metoprolol Tartrate (Lopressor) 25 mg PO BID [facility] Last Admin: 01/27/19 13:26 Dose: 25 mg Morphine Sulfate (Morphine) 2 mg IVPUSH Q2H PRN PRN Reason: Pain (severe 7-10) Ondansetron HCl (Zofran Odt) 4 mg PO Q6H PRN PRN Reason: Nausea able to take PO Oxycodone HCl (Oxycodone) 5 mg PO Q4H PRN PRN Reason: Pain (moderate 4-6) Discontinued Medications Diltiazem HCl (Diltiazem) 10 mg IVPUSH ONETIME ONE Stop: 01/23/19 22:27 Last Admin: 01/23/19 22:43 Dose: 10 mg Diltiazem HCl (Cardizem) 60 mg PO ONETIME ONE Stop: 01/23/19 23:27 Last Admin: 01/23/19 23:55 Dose: 60 mg Diltiazem HCl (Cardizem) 60 mg PO Q6H [facility] Last Admin: 01/24/19 06:10 Dose: 60 mg Diltiazem HCl (Cardizem Cd) 180 mg PO ONETIME ONE Stop: 01/24/19 13:01 Last Admin: 01/24/19 16:52 Dose: Not Given Diltiazem HCl (Cardizem Cd) 180 mg PO DAILY [facility] Diltiazem HCl (Cardizem Cd) 120 mg PO ONETIME ONE Stop: 01/24/19 17:40 Last Admin: 01/24/19 18:42 Dose: 120 mg Diltiazem HCl (Diltiazem) 10 mg IVPUSH ONETIME ONE Stop: 01/25/19 07:52 Last Admin: 01/25/19 07:59 Dose: 10 mg Diltiazem HCl (Cardizem Cd) 180 mg PO ONETIME ONE Stop: 01/25/19 13:11 Last Admin: 01/25/19 13:19 Dose: 180 mg Diltiazem HCl (Cardizem Cd) 180 mg PO DAILY [facility] Last Admin: 01/27/19 13:37 Dose: Not Given Diltiazem HCl (Cardizem) 30 mg PO Q6HR [facility] Last Admin: 01/27/19 13:37 Dose: Not Given Enoxaparin Sodium (Lovenox) 40 mg SUBCUT ONETIME ONE Stop: 01/24/19 01:01 Last Admin: 01/24/19 01:35 Dose: 40 mg Sodium Chloride (Normal Saline) 1,000 mls @ 250 mls/hr IV ASDIRECTED [facility] Last Admin: 01/23/19 22:57 Dose: 250 mls/hr Sodium Chloride (Normal Saline) 1,000 mls @ 100 mls/hr IV ASDIRECTED [facility] Last Admin: 01/24/19 23:40 Dose: 100 mls/hr Magnesium Sulfate 2 gm/ Premix 50 mls @ 12.5 mls/hr IV ONETIME ONE Stop: 01/24/19 12:59 Last Admin: 01/24/19 08:47 Dose: 12.5 mls/hr Diltiazem HCl 125 mg/ Dextrose (/Water) 125 mls @ 5 mls/hr IV TITRATE [facility]; Protocol Stop: 01/25/19 14:30 Last Admin: 01/25/19 09:25 Dose: 5 mg/hr, 5 mls/hr Sodium Chloride (Normal Saline) 1,000 mls @ 25 mls/hr IV ASDIRECTED [facility] Stop: 01/25/19 14:30 Magnesium Sulfate 2 gm/ Premix 50 mls @ 25 mls/hr IV Q6H [facility] Stop: 01/25/19 21:29 Last Admin: 01/25/19 19:21 Dose: 25 mls/hr Metoprolol Tartrate (Lopressor) 12.5 mg PO ONETIME ONE Stop: 01/23/19 21:50 Last Admin: 01/23/19 21:55 Dose: 12.5 mg Metoprolol Tartrate (Lopressor) 12.5 mg PO BID [facility] Last Admin: 01/25/19 08:03 Dose: 12.5 mg Pantoprazole Sodium (Protonix Iv) 40 mg IV Q24H [facility] Pantoprazole Sodium (Protonix Iv) 40 mg IV Q24H [facility] Last Admin: 01/24/19 08:48 Dose: 40 mg Potassium Chloride (Klor-Con M20) 40 meq PO ONETIME ONE Stop: 01/24/19 09:01 Last Admin: 01/24/19 08:46 Dose: 40 meq Potassium Chloride (Klor-Con M20) 40 meq PO ONETIME ONE Stop: 01/25/19 13:31 Last Admin: 01/25/19 13:19 Dose: 40 meq Triamterene/HCTZ (Maxzide 25-37.5 Mg) 1 each PO DAILY [facility] Last Admin: 01/27/19 13:37 Dose: Not Given - Exam Quality Assessment: DVT Prophylaxis General: Alert, Oriented, Cooperative, No Acute Distress Lungs: Clear to Auscultation, Normal Respiratory Effort Cardiovascular: Regular Rate, No Murmurs, Irregular Rhythm GI/Abdominal Exam: Soft, Non-Tender, No Organomegaly, No Distention Extremities: Non-Tender, No Pedal Edema - Problem List Review Problem List Initiated/Reviewed/Updated: Yes - My Orders Last 24 Hours: My Active Orders 01/27/19 13:30 Diltiazem [Cardizem CD] 240 mg PO DAILY 01/28/19 05:00 BASIC METABOLIC PANEL,BMP [CHEM] Timed MAGNESIUM [CHEM] Timed - Plan Plan:: ASSESSMENT / PLAN: Paroxysmal atrial fibrillation - several episodes of atrial fibrillation, currently in atrial fibrillation with good rate control. Management of atrial fibrillation with rapid rate complicated by hypotension on current medical therapy. Echocardiogram shows normal left ventricular function and no significant chamber enlargement. -Discontinue short-acting diltiazem -Increase long-acting diltiazem to 240 mg daily -Continue current dose of metoprolol -Discontinue Maxide -Cardiac monitoring -Supplement potassium and magnesium as needed Hypertension - blood pressure acceptable at this time. Developed hypotension earlier this morning, medication changes as above. -ordered home medication Maintenance issues -sleep - Melatonin 6mg po at HS prn. -Nutrition: Regular diet -DVT:Lovenox 30mg subcut daily -GI Prophalaxis; not indicated CODE STATUS: Full Admission status - patient now has her third recurrence of atrial fibrillation in the past 36 hours. She will be transitioned to inpatient at this time. I would expect that it will take at least 2 midnights to control her heart rates and find a suitable controlling medication as well as consideration for an echocardiogram. Disposition: I would anticipate discharge to home after the hospital stay
[2019-01-27] MEDS: Enoxaparin 40 MG/0.4 ML Syringe SUBCUT SCH (21:22)
[2019-01-28] MEDS ORDERED: Magnesium Oxide 400 MG Tab PO SCH (09:00)
[2019-01-28] MEDS: Escitalopram 10 MG Tab PO SCH (09:05)
[2019-01-28] MEDS: Metoprolol Tartrate 25 MG Tab PO SCH (09:05)
[2019-01-28] MEDS: Diltiazem 120 MG Cap.CD PO SCH (09:06)
[2019-01-28] MEDS ORDERED: Magnesium Sulfate/Water 2 GM in Premix Bag 1 BAG IV SCH (10:00)
--- NOTE | 2019-01-28 12:54 | PCM.DCSUM1 ---
Discharge Summary - Hospital Course Brief History: Ms. Byrnes is an 88-year-old woman who was admitted through the emergency department with weakness, lightheadedness, and palpitations, secondary to atrial fibrillation with rapid ventricular response. - Discharge Data Discharge Date: 01/28/19 Discharge Disposition: Home, Self-Care 01 Condition: Fair - Discharge Diagnosis/Problem(s) (1) Paroxysmal atrial fibrillation with RVR SNOMED Code(s): 807231943, [id number] ICD Code: I48.0 - PAROXYSMAL ATRIAL FIBRILLATION Status: Acute Current Visit: Yes (2) Hypertension SNOMED Code(s): 09275918 ICD Code: I10 - ESSENTIAL (PRIMARY) HYPERTENSION Status: Acute Priority: High Current Visit: Yes Qualifiers: Hypertension type: essential hypertension Qualified Code(s): I10 - Essential (primary) hypertension - Patient Summary/Data Hospital Course: Mrs. Byrnes arrived in the emergency department with pain or tightness in her chest ans she felt like her heart was racing. She had a EKG in the ambulance and it showed atrial fib in the 122 range. She did convert on her own in the ambulance. She arrived in a sinus rhythm with a rate of 74. She took ASA at home. She is not on any other blood thinner. She does have a known history of paroxysmal atrial fibrillation. She remained in sinus rhythm in the emergency department until just prior to discharge when she went back into atrial fibrillation with rapid ventricular response. She was given IV diltiazem, remained in atrial fibrillation with slow healing of her heart rate into the 70s and 90s. Troponin was within normal range and she experienced no further symptoms of chest pain or pressure. She was admitted to the hospital and treated with oral diltiazem 60 mg every 6 hours. Over the next few days she had intermittent episodes of atrial fibrillation with rapid ventricular response. Her dose of beta madeleine was increased to metoprolol 25 mg twice daily. She was also transitioned to long-acting form of diltiazem 180 mg daily. Despite this she had another recurrent episode of atrial fibrillation. At that time she was placed on short acting diltiazem 30 mg every 6 hours in addition to the long- acting diltiazem. This did result in good rate control of the atrial fibrillation but unfortunately she developed significant hypotension. Following day the short acting diltiazem was discontinued as well as her hydrochlorothiazide triamterene. She was continued on metoprolol 25 mg twice daily and the diltiazem CD was changed to 240 mg daily. With these interventions heart rate remained under good control with the atrial fibrillation. At the time of discharge she is back to sinus rhythm. She has had previous episodes of paroxysmal atrial fibrillation and has discussed anticoagulation with identification technician. She has refused consideration of anticoagulation with warfarin or any of the other newer agents. Compromise with the identification technician was to place her on aspirin 325 mg daily. I discussed the issue of anticoagulation with her again today and she continues to refuse consideration of more aggressive anticoagulation and does understand the potential risk of stroke. Activity will be as tolerated and she will resume her usual diet. Follow-up appointment will be scheduled with her primary care provider within one week. - Discharge Plan *PRESCRIPTION DRUG MONITORING PROGRAM REVIEWED*: Not Applicable *COPY OF PRESCRIPTION DRUG MONITORING REPORT IN PATIENT ROGER: Not Applicable Prescriptions/Med Rec: Diltiazem HCl [Diltiazem 24Hr Cd] 240 mg PO DAILY #30 cap.er.24h Magnesium Oxide 400 mg PO BID #60 tablet Metoprolol Tartrate [Lopressor] 25 mg PO BID #60 tablet Home Medications: Home Meds Aspirin [Aspirin EC] 325 mg PO DAILY 01/23/19 [History] Cyanocobalamin (Vitamin B-12) [B-12] 1,000 mcg PO DAILY 01/23/19 [History] Diphenhydram/PE/DM/Acetamin/GG [Daytime-Cold [id number]] 1 tab PO PRN [History] Ergocalciferol (Vitamin D2) [Vitamin D2] 400 unit PO DAILY 01/23/19 [History] Escitalopram [Lexapro] 10 mg PO DAILY 01/23/19 [History] Diltiazem HCl [Diltiazem 24Hr Cd] 240 mg PO DAILY #30 cap.er.24h 01/28/19 [Rx] Magnesium Oxide 400 mg PO BID #60 tablet 01/28/19 [Rx] Metoprolol Tartrate [Lopressor] 25 mg PO BID #60 tablet 01/28/19 [Rx] Patient Handouts: Atrial Fibrillation, [id number] Referrals: Myra Shen PA [Physician Campaign Manager] - 01/31/19 10:00 am (Please arrive 15 minutes early to register for your apppointment.) - Discharge Summary/Plan Comment DC Time >30 min.: No - Patient Data Vitals - Most Recent: Last Vital Signs Temp 98.1 F 01/28/19 11:49 Pulse 59 L 01/28/19 11:49 Resp 12 01/28/19 11:49 BP 129/50 L 01/28/19 11:49 Pulse Ox 95 01/28/19 11:49 Orthostatic Blood Pressure [ 169/76 Standing] Orthostatic Blood Pressure [ 157/88 Sitting] Orthostatic Blood Pressure [ 157/76 Supine] Weight - Most Recent: 140 lb I&O - Last 24 hours: Intake & Output 01/27/19 01/28/19 01/28/19 22:59 06:59 14:59 Intake Total 120 400 Balance 120 400 Lab Results - Last 24 hrs: Laboratory Results - last 24 hr 01/28/19 Range/Units 04:40 Sodium 138 L (140-148) mmol/L Potassium 4.1 (3.6-5.2) mmol/L Chloride 103 (100-108) mmol/L Carbon Dioxide 27 (21-32) mmol/L Anion Gap 12.1 (5.0-14.0) mmol/L BUN 12 (7-18) mg/dL Creatinine 0.6 (0.6-1.0) mg/dL Est Cr Clr Drug Dosing 58.23 mL/min Estimated GFR (MDRD) > 60 (>60) Glucose 97 (74-106) mg/dL Calcium 8.9 (8.5-10.1) mg/dL Magnesium 1.5 L (1.8-2.4) mg/dL Med Orders - Current: Current Medications Acetaminophen (Tylenol) 650 mg PO Q4H PRN PRN Reason: Pain (Mild 1-3)/fever Albuterol (Proventil Neb Soln) 2.5 mg NEB Q4H PRN PRN Reason: Shortness Of Breath/wheezing Bisacodyl (Dulcolax) 5 mg PO DAILY PRN PRN Reason: Constipation Diltiazem HCl (Cardizem Cd) 240 mg PO DAILY [facility] Last Admin: 01/28/19 09:06 Dose: 240 mg Docusate Sodium (Colace) 100 mg PO BID PRN PRN Reason: Constipation Enoxaparin Sodium (Lovenox) 40 mg SUBCUT Q24H [facility] Last Admin: 01/27/19 21:22 Dose: 40 mg Escitalopram Oxalate (Lexapro) 10 mg PO DAILY [facility] Last Admin: 01/28/19 09:05 Dose: 10 mg Magnesium Sulfate 2 gm/ Premix 50 mls @ 25 mls/hr IV Q6H [facility] Stop: 01/28/19 17:59 Last Admin: 01/28/19 11:00 Dose: 25 mls/hr Lorazepam (Ativan) 1 mg IV Q6H PRN PRN Reason: Nausea/Vomiting Magnesium Oxide (Magnesium Oxide) 400 mg PO BID [facility] Last Admin: 01/28/19 11:00 Dose: 400 mg Melatonin (Melatonin) 6 mg PO BEDTIME PRN PRN Reason: Insomnia Last Admin: 01/26/19 21:56 Dose: 6 mg Metoprolol Tartrate (Lopressor) 25 mg PO BID [facility] Last Admin: 01/28/19 09:05 Dose: 25 mg Morphine Sulfate (Morphine) 2 mg IVPUSH Q2H PRN PRN Reason: Pain (severe 7-10) Ondansetron HCl (Zofran Odt) 4 mg PO Q6H PRN PRN Reason: Nausea able to take PO Oxycodone HCl (Oxycodone) 5 mg PO Q4H PRN PRN Reason: Pain (moderate 4-6) Discontinued Medications Diltiazem HCl (Diltiazem) 10 mg IVPUSH ONETIME ONE Stop: 01/23/19 22:27 Last Admin: 01/23/19 22:43 Dose: 10 mg Diltiazem HCl (Cardizem) 60 mg PO ONETIME ONE Stop: 01/23/19 23:27 Last Admin: 01/23/19 23:55 Dose: 60 mg Diltiazem HCl (Cardizem) 60 mg PO Q6H [facility] Last Admin: 01/24/19 06:10 Dose: 60 mg Diltiazem HCl (Cardizem Cd) 180 mg PO ONETIME ONE Stop: 01/24/19 13:01 Last Admin: 01/24/19 16:52 Dose: Not Given Diltiazem HCl (Cardizem Cd) 180 mg PO DAILY [facility] Diltiazem HCl (Cardizem Cd) 120 mg PO ONETIME ONE Stop: 01/24/19 17:40 Last Admin: 01/24/19 18:42 Dose: 120 mg Diltiazem HCl (Diltiazem) 10 mg IVPUSH ONETIME ONE Stop: 01/25/19 07:52 Last Admin: 01/25/19 07:59 Dose: 10 mg Diltiazem HCl (Cardizem Cd) 180 mg PO ONETIME ONE Stop: 01/25/19 13:11 Last Admin: 01/25/19 13:19 Dose: 180 mg Diltiazem HCl (Cardizem Cd) 180 mg PO DAILY [facility] Last Admin: 01/27/19 13:37 Dose: Not Given Diltiazem HCl (Cardizem) 30 mg PO Q6HR [facility] Last Admin: 01/27/19 13:37 Dose: Not Given Enoxaparin Sodium (Lovenox) 40 mg SUBCUT ONETIME ONE Stop: 01/24/19 01:01 Last Admin: 01/24/19 01:35 Dose: 40 mg Sodium Chloride (Normal Saline) 1,000 mls @ 250 mls/hr IV ASDIRECTED [facility] Last Admin: 01/23/19 22:57 Dose: 250 mls/hr Sodium Chloride (Normal Saline) 1,000 mls @ 100 mls/hr IV ASDIRECTED [facility] Last Admin: 01/24/19 23:40 Dose: 100 mls/hr Magnesium Sulfate 2 gm/ Premix 50 mls @ 12.5 mls/hr IV ONETIME ONE Stop: 01/24/19 12:59 Last Admin: 01/24/19 08:47 Dose: 12.5 mls/hr Diltiazem HCl 125 mg/ Dextrose (/Water) 125 mls @ 5 mls/hr IV TITRATE [facility]; Protocol Stop: 01/25/19 14:30 Last Admin: 01/25/19 09:25 Dose: 5 mg/hr, 5 mls/hr Sodium Chloride (Normal Saline) 1,000 mls @ 25 mls/hr IV ASDIRECTED [facility] Stop: 01/25/19 14:30 Magnesium Sulfate 2 gm/ Premix 50 mls @ 25 mls/hr IV Q6H [facility] Stop: 01/25/19 21:29 Last Admin: 01/25/19 19:21 Dose: 25 mls/hr Metoprolol Tartrate (Lopressor) 12.5 mg PO ONETIME ONE Stop: 01/23/19 21:50 Last Admin: 01/23/19 21:55 Dose: 12.5 mg Metoprolol Tartrate (Lopressor) 12.5 mg PO BID [facility] Last Admin: 01/25/19 08:03 Dose: 12.5 mg Pantoprazole Sodium (Protonix Iv) 40 mg IV Q24H [facility] Pantoprazole Sodium (Protonix Iv) 40 mg IV Q24H [facility] Last Admin: 01/24/19 08:48 Dose: 40 mg Potassium Chloride (Klor-Con M20) 40 meq PO ONETIME ONE Stop: 01/24/19 09:01 Last Admin: 01/24/19 08:46 Dose: 40 meq Potassium Chloride (Klor-Con M20) 40 meq PO ONETIME ONE Stop: 01/25/19 13:31 Last Admin: 01/25/19 13:19 Dose: 40 meq Triamterene/HCTZ (Maxzide 25-37.5 Mg) 1 each PO DAILY [facility] Last Admin: 01/27/19 13:37 Dose: Not Given - Exam Quality Assessment: Reports: DVT Prophylaxis General: Reports: Alert, Oriented, Cooperative, No Acute Distress Lungs: Reports: Clear to Auscultation, Normal Respiratory Effort Cardiovascular: Reports: Regular Rate, Regular Rhythm, No Murmurs GI/Abdominal Exam: Soft, Non-Tender, No Organomegaly, No Distention
== END 2019-01-28 15:12 | disposition home or self-care (01) | DRG 310 ==
LOC: JP.ED 19:36 → JP.ICU 23:51 → OBSVTOIN 01-25 08:55 → JP.MS 01-26 09:30
PROVIDERS: ADMIT Internal Medicine; ATTEND Hospitalist
DX: I48.91 Unspecified atrial fibrillation (principal); I48.0 Paroxysmal atrial fibrillation; I10 Essential (primary) hypertension; R07.89 Other chest pain; R42 Dizziness and giddiness; Z96.649 Presence of unspecified artificial hip joint; F17.210 Nicotine dependence, cigarettes, uncomplicated; E87.6 Hypokalemia; E83.42 Hypomagnesemia; E78.00 Pure hypercholesterolemia, unspecified; M19.90 Unspecified osteoarthritis, unspecified site; H54.7 Unspecified visual loss; Z79.82 Long term (current) use of aspirin; Z53.29 Procedure and treatment not carried out because of patient's decision for other reasons; I95.2 Hypotension due to drugs; T50.2X5A Adverse effect of carbonic-anhydrase inhibitors, benzothiadiazides and other diuretics, initial encounter; Y92.230 Patient room in hospital as the place of occurrence of the external cause; T46.1X5A Adverse effect of calcium-channel blockers, initial encounter; H35.30 Unspecified macular degeneration
CPT/HCPCS: 36415; 71045; 80048; 80053; 81001; 83735; 84443; 84484; 85025; 93005; 93010; 93306; 96361; 96374; 96375; 99285; 99285-25; A9270-GY; C9113; J1650; J3475; J3490; J7030; J7060

== ENCOUNTER 2019-10-17 00:49 | Emergency (ER) | payer MEDICARE ==
--- NOTE | 2019-10-17 01:25 | EDM.PDOC ---
ED HPI GENERAL MEDICAL PROBLEM - General Chief Complaint: Back Pain or Injury Stated Complaint: FALL VIA NORTH Time Seen by Provider: 10/17/19 01:20 Source of Information: Reports: Patient, EMS History Limitations: Reports: No Limitations - History of Present Illness INITIAL COMMENTS - FREE TEXT/NARRATIVE: 89 years old female patient brought in by ambulance with chief complaint of fall , low back pain. Patient she was in the bathroom, taken off her shirt, lost her balance and fell down on her buttock. Complaining of low back pain. Worse with any movement. No radiation. Did not hit her head. No loss of consciousness. Denies any neck pain. Denies any headache or visual changes. Denies any focal weakness or numbness anywhere denies any chest pain shortness breath. Denies any abdominal pain diarrhea or constipation. Denies any urinary symptom. Middle Back Pain Score (Numeric/FACES): 9 - Related Data Allergies Allergy/AdvReac Type Severity Reaction Status Date / Time No Known Allergies Allergy Verified 10/17/19 01:02 Home Meds: Home Meds Cyanocobalamin (Vitamin B-12) [B-12] 1,000 mcg PO DAILY 01/23/19 [History] Ergocalciferol (Vitamin D2) [Vitamin D2] 400 unit PO DAILY 01/23/19 [History] Escitalopram [Lexapro] 10 mg PO DAILY 01/23/19 [History] Diltiazem HCl [Diltiazem 24Hr Cd] 240 mg PO DAILY #30 cap.er.24h 01/28/19 [Rx] Magnesium Oxide 400 mg PO BID #60 tablet 01/28/19 [Rx] Metoprolol Tartrate [Lopressor] 25 mg PO BID #60 tablet 01/28/19 [Rx] Acetaminophen/Diphenhydramine [Tylenol Pm Ex-Strength Caplet] 1 tab PO BEDTIME 10/17/19 [History] Furosemide 10 mg PO DAILY 10/17/19 [History] Vitamin E 1 cap PO DAILY 10/17/19 [History] Warfarin Sodium [Jantoven] 5 mg PO DAILY 10/17/19 [History] Past Medical History HEENT History: Reports: Impaired Vision, Macular Degeneration Cardiovascular History: Reports: High Cholesterol, Hypertension Gastrointestinal History: Reports: Other (See Below) Other Gastrointestinal History: colitis [employer] History: Reports: Musculoskeletal History: Reports: Arthritis - Past Surgical History Other HEENT Surgeries/Procedures: shots in her eyes Other Musculoskeletal Surgeries/Procedures:: surgery on neck many years ago Social & Family History - Tobacco Use Smoking Status *Q: Light Tobacco Smoker Years of Tobacco use: 50 Packs/Tins Daily: 0.2 - Caffeine Use Caffeine Use: Reports: None - Alcohol Use Days Per Week of Alcohol Use: 7 Number of Drinks Per Day: 1 Total Drinks Per Week: 7 - Recreational Drug Use Recreational Drug Use: No - Living Situation & Occupation Living situation: Reports: , with Family Occupation: Retired (has her own home in [place], her Son Gómez lives with her. Has one Daughter in [place], her Oldest Son got sick and 3 years ago.) ED ROS GENERAL - Review of Systems Review Of Systems: Comprehensive ROS is negative, except as noted in HPI. ED EXAM,LOWER BACK PAIN/INJURY - Physical Exam Exam: See Below Exam Limited By: No Limitations General Appearance: Alert, WD/WN, No Apparent Distress Nose: Normal Inspection, Normal Mucosa, No Blood Throat/Mouth: Normal Inspection, Normal Lips, Normal Teeth, Normal Gums, Normal Oropharynx, Normal Voice, No Airway Compromise Head: Atraumatic, Normocephalic Neck: Normal Inspection, Supple, Non-Tender, Full Range of Motion Respiratory/Chest: No Respiratory Distress, Lungs Clear, Normal Breath Sounds, No Accessory Muscle Use, Chest Non-Tender Cardiovascular: Normal Peripheral Pulses, No Edema, No Gallop, No JVD, No Murmur , No Rub, Irregularly Irregular GI/Abdominal: Normal Bowel Sounds, Soft, Non-Tender, No Organomegaly, No Distention, No Abnormal Bruit, No Mass Extremities: Normal Inspection, Normal Range of Motion, Non-Tender, No Pedal Edema, Normal Capillary Refill Neurological: Alert, Normal Mood/Affect, Normal Dorsiflexion, CN II-XII Intact, Normal Plantar Flexion, Normal Gait, Normal Reflexes, No Motor/Sensory Deficits , Oriented x 3 Skin Exam: Warm, Dry, Intact, Normal Color, No Rash Course - Vital Signs Last Recorded V/S: Last Vital Signs Temp 36.7 C 10/17/19 04:31 Pulse 67 10/17/19 04:31 Resp 16 10/17/19 04:31 BP 145/82 H 10/17/19 04:31 Pulse Ox 96 10/17/19 04:31 - Orders/Labs/Meds Labs: Laboratory Tests 10/17/19 10/17/19 10/17/19 Range/Units 01:25 01:25 01:25 WBC 15.7 H (4.5-11.0) K/uL RBC 3.95 (3.30-5.50) M/uL Hgb 13.0 (12.0-15.0) g/dL Hct 40.1 (36.0-48.0) % MCV 102 H (80-98) fL MCH 33 H (27-31) pg MCHC 32 (32-36) % Plt Count 218 (150-400) K/uL Neut % (Auto) 82 H (36-66) % Lymph % (Auto) 9 L (24-44) % Glenn % (Auto) 9 H (2-6) % Eos % (Auto) 0 L (2-4) % Baso % (Auto) 0 (0-1) % PT 25.7 H (9.5-12.0) sec INR 2.51 H (0.80-1.20) Sodium 140 (140-148) mmol/L Potassium 3.8 (3.6-5.2) mmol/L Chloride 102 (100-108) mmol/L Carbon Dioxide 29 (21-32) mmol/L Anion Gap 8.9 (5.0-14.0) mmol/L BUN 15 (7-18) mg/dL Creatinine 0.5 (0.5-1.0) mg/dL Est Cr Clr Drug Dosing 68.64 mL/min Estimated GFR (MDRD) > 60 (>60) BUN/Creatinine Ratio Not Reportable Glucose 118 H (74-106) mg/dL Calcium 8.6 (8.5-10.1) mg/dL Total Bilirubin 0.3 (0.2-1.0) mg/dL AST 26 (15-37) U/L ALT 33 (12-78) U/L Alkaline Phosphatase 98 (46-116) U/L Total Protein 6.8 (6.4-8.2) g/dL Albumin 3.6 (3.4-5.0) g/dL Globulin 3.2 (2.3-3.5) g/dL Albumin/Globulin Ratio 1.1 L (1.2-2.2) Urine Color (YELLOW) Urine Appearance (CLEAR) Urine pH (5.0-8.0) Ur Specific [place] (1.008-1.030) Urine Protein (NEGATIVE) mg/dL Urine Glucose (UA) (NEGATIVE) mg/dL Urine Ketones (NEGATIVE) mg/dL Urine Occult Blood (NEGATIVE) Urine Nitrite (NEGATIVE) Urine Bilirubin (NEGATIVE) Urine Urobilinogen (0.2-1.0) EU/dL Ur Leukocyte Esterase (NEGATIVE) Urine RBC (0-5) Urine WBC (0-5) Ur Epithelial Cells Amorphous Sediment Urine Bacteria Urine Mucus 10/17/19 Range/Units 02:37 WBC (4.5-11.0) K/uL RBC (3.30-5.50) M/uL Hgb (12.0-15.0) g/dL Hct (36.0-48.0) % MCV (80-98) fL MCH (27-31) pg MCHC (32-36) % Plt Count (150-400) K/uL Neut % (Auto) (36-66) % Lymph % (Auto) (24-44) % Glenn % (Auto) (2-6) % Eos % (Auto) (2-4) % Baso % (Auto) (0-1) % PT (9.5-12.0) sec INR (0.80-1.20) Sodium (140-148) mmol/L Potassium (3.6-5.2) mmol/L Chloride (100-108) mmol/L Carbon Dioxide (21-32) mmol/L Anion Gap (5.0-14.0) mmol/L BUN (7-18) mg/dL Creatinine (0.5-1.0) mg/dL Est Cr Clr Drug Dosing mL/min Estimated GFR (MDRD) (>60) BUN/Creatinine Ratio Glucose (74-106) mg/dL Calcium (8.5-10.1) mg/dL Total Bilirubin (0.2-1.0) mg/dL AST (15-37) U/L ALT (12-78) U/L Alkaline Phosphatase (46-116) U/L Total Protein (6.4-8.2) g/dL Albumin (3.4-5.0) g/dL Globulin (2.3-3.5) g/dL Albumin/Globulin Ratio (1.2-2.2) Urine Color Yellow (YELLOW) Urine Appearance Slightly cloudy A (CLEAR) Urine pH 7.5 (5.0-8.0) Ur Specific [place] 1.020 (1.008-1.030) Urine Protein 100 H (NEGATIVE) mg/dL Urine Glucose (UA) Negative (NEGATIVE) mg/dL Urine Ketones Negative (NEGATIVE) mg/dL Urine Occult Blood Small H (NEGATIVE) Urine Nitrite Negative (NEGATIVE) Urine Bilirubin Negative (NEGATIVE) Urine Urobilinogen 0.2 (0.2-1.0) EU/dL Ur Leukocyte Esterase Negative (NEGATIVE) Urine RBC 10-20 H (0-5) Urine WBC 0-5 (0-5) Ur Epithelial Cells Rare Amorphous Sediment Few Urine Bacteria Rare Urine Mucus Not seen Meds: Medications Discontinued Medications Generic Name Dose Route Start Last Admin Trade Name Freq PRN Reason Stop Dose Admin Fentanyl 50 mcg 10/17/19 01:26 10/17/19 01:58 Sublimaze IVPUSH 10/17/19 01:27 50 mcg ONETIME ONE Administration Sodium Chloride 70 mls @ 3 mls/sec 10/17/19 01:56 10/17/19 01:59 Normal Saline IV 10/17/19 01:57 3 mls/sec ASDIRECTED STA Administration Iopamidol 100 ml 10/17/19 01:56 10/17/19 01:58 Isovue-300 (61%) IV 10/17/19 01:57 100 ml . DIRECTED STA Administration - Re-Assessments/Exams Free Text/Narrative Re-Assessment/Exam: 10/17/19 01:24 Patient was seen and examined shortly after arrival. Stable. She was given 150 g of IV fentanyl by EMS prior to arrival. Symptom improved. Lab and imaging reviewed with the patient. L1 compression fracture. Case was discussed with Dr. Salas neurosurgeon from [facility] and he recommended transferring the patient to the ER to be fitted for a brace and physical therapy evaluation. Case was discussed with Dr. Webster possibly ER physician at [facility] and he accepted the transfer for further management. Patient agrees with the plan. Given another 50 g IV fentanyl. Stable for transfer. 10/17/19 04:35 Departure - Departure Time of Disposition: 04:37 Disposition: DC/Tfer to Acute Hospital 02 Condition: Fair Clinical Impression: Compression fracture of L1 lumbar vertebra, Thyroid nodule, Adrenal nodule - Discharge Information Referrals: PCP,None [Primary Care Provider] - Forms: ED Department Discharge Sepsis Event Note - Evaluation Sepsis Screening Result: No Definite Risk - Focused Exam Vital Signs: Vital Signs Temp Pulse Resp BP Pulse Ox 10/17/19 04:31 36.7 C 67 16 145/82 H 96 10/17/19 01:15 95 10/17/19 00:56 35.7 C 59 L 16 180/82 H 87 L Date Exam was Performed: 10/17/19 Time Exam was Performed: 04:35 - Assessment/Plan Plan: Transfer to [facility] ER
[2019-10-17] MEDS ORDERED: fentaNYL 100 MCG/2 ML SDV IVPUSH ONE ×2 (01:26→04:39)
[2019-10-17] MEDS ORDERED: Iopamidol 612 MG/ML 100 ML Bottle IV STA (01:56)
--- NOTE | 2019-10-17 02:37 | CRLCT ---
INDICATION: Fall, pain TECHNIQUE: CT head without contrast. COMPARISON: None. FINDINGS: CSF spaces: Borderline ventricular size for this degree of atrophy. Brain parenchyma: Diffuse cerebral atrophy with moderate low-density in the deep white matter. No mass effect. Skull base and calvarium: The visualized paranasal sinuses and mastoid air cells demonstrate no acute or significant findings. The visualized orbits are grossly unremarkable. No skull fractures. Atherosclerosis. IMPRESSION: 1. No evidence of calvarial fracture or intracranial bleed. 2. Cerebral atrophy with nonspecific white matter disease, likely microangiopathy. 3. Borderline hydrocephalus for this degree of atrophy. Please note that all CT scans at this facility use dose modulation, iterative reconstruction, and/or weight-based dosing when appropriate to reduce radiation dose to as low as reasonably achievable. Dictated by Vidal Trinh MD @ Oct 17 2019 2:31AM Signed by Dr. Vidal Trinh @ Oct 17 2019 2:34AM
--- NOTE | 2019-10-17 02:47 | CRLCT ---
INDICATION: Pain after fall TECHNIQUE: CT cervical spine without contrast. COMPARISON: None FINDINGS: Vertebrae: Alignment is normal. There are no fractures or suspicious bony lesions. Discs and facet joints: Facet hypertrophy at C2-3 without significant stenosis. Facet hypertrophy with posterior osteophytes at C3-4 causing mild bilateral foraminal stenosis. Facet hypertrophy with posterior osteophytes C4-5 causing severe right foraminal stenosis. Facet hypertrophy with posterior osteophytes causing mild bilateral foraminal stenosis at C5-6. Facet hypertrophy C6-7 causing mild left foraminal stenosis. Facet hypertrophy C7-T1 without significant stenosis. Extraspinal findings: Atherosclerosis left lobe thyroid hypodense nodule measuring 2.3 centimeters. Follow-up outpatient thyroid ultrasound suggested for further characterization. IMPRESSION: Multilevel degenerative disc disease cervical spine without evidence of cervical spine fracture. Please note that all CT scans at this facility use dose modulation, iterative reconstruction, and/or weight-based dosing when appropriate to reduce radiation dose to as low as reasonably achievable. Dictated by Vidal Trinh MD @ Oct 17 2019 2:40AM Signed by Dr. Vidal Trinh @ Oct 17 2019 2:45AM
--- NOTE | 2019-10-17 02:56 | CRLCT ---
INDICATION: Pain after fall TECHNIQUE: CT abdomen and pelvis acquired with 100 cc Isovue-300 intravenous contrast. COMPARISON: Abdomen and pelvis CT 01/13/2015 FINDINGS: Lower chest: Bibasilar discoid atelectasis. Minimal hiatal hernia. Liver: Unremarkable. Normal in size and attenuation. No masses. Gallbladder and bile ducts: Unremarkable. No stones or inflammation. No biliary dilatation. Pancreas: Unremarkable. No mass or inflammation. Spleen: Unremarkable. Normal in size. No masses. Adrenal glands: Bilateral adrenal nodules, stable compared to the prior exam. Kidneys: Symmetric renal enhancement with bilateral nonobstructing nephrolithiasis. Subcentimeter left renal cyst redemonstrated. GI tract: Minimal hiatal hernia. No dilated bowel or localized inflammation. Vasculature: Atherosclerosis without abdominal aortic aneurysm. Pelvis: Bilateral iliopsoas atrophy, greater on the left. Distended bladder. No gross pelvic abnormalities although evaluation of the pelvis is somewhat limited due to beam hardening artifact from the patient`s hip replacements. Bones: Status post bilateral total hip replacements. Degenerative disc disease lumbar spine with grade 1 anterolisthesis of L3 on 4 and L4 on 5. Acute appearing compression fracture of L1 vertebral body with loss of height less than 25 percent anteriorly. IMPRESSION: 1. Acute appearing L1 compression fracture with loss of height less than 25 percent. 2. No evidence of solid organ injury. 3. Nonobstructing nephrolithiasis. 4. Other incidental findings as detailed above. Please note that all CT scans at this facility use dose modulation, iterative reconstruction, and/or weight-based dosing when appropriate to reduce radiation dose to as low as reasonably achievable. Dictated by Vidal Trinh MD @ Oct 17 2019 2:45AM Signed by Dr. Vidal Trinh @ Oct 17 2019 2:55AM
--- NOTE | 2019-10-17 03:09 | CRLCT ---
INDICATION: Pain after fall TECHNIQUE: CT lumbar spine without contrast. COMPARISON: None FINDINGS: There is a fracture of the L1 vertebral body involving the superior endplate with a transverse component extending from the anterior to the posterior cortex. Very slight irregularity of the posterior cortex without significant spinal canal stenosis. Prominent facet hypertrophy is present, especially the L3-4 and L4-5 levels with grade 1 anterolisthesis at L3-4 measuring 6 millimeters and at L4-5 measuring 8 millimeters. Broad-based annular bulge L2-3 contributes to mild bilateral foraminal stenosis. Anterolisthesis with uncovering of the disc at L3-4 causes moderate central spinal canal stenosis and left foraminal stenosis and severe right foraminal stenosis. Anterolisthesis with uncovering of the disc at L4-5 causes moderate to severe spinal canal stenosis, moderate right foraminal stenosis and moderate to severe left foraminal stenosis. Broad-based annular bulge at L5-S1 contributes to mild bilateral lateral recess stenosis and moderate bilateral foraminal stenosis. IMPRESSION: 1. Fracture of the L1 vertebral body as described above. Findings are consistent with an incomplete burst type fracture without significant spinal canal stenosis (AO Spine classification A3). 2. Multilevel degenerative disc disease with grade 1 anterolisthesis of L3-4 and L4-5. Please note that all CT scans at this facility use dose modulation, iterative reconstruction, and/or weight-based dosing when appropriate to reduce radiation dose to as low as reasonably achievable. Dictated by Vidal Trinh MD @ Oct 17 2019 2:58AM Signed by Dr. Vidal Trinh @ Oct 17 2019 3:06AM
== END 2019-10-17 05:19 ==
LOC: JP.ED 00:49
DX: S32.019A Unspecified fracture of first lumbar vertebra, initial encounter for closed fracture (principal); E04.1 Nontoxic single thyroid nodule; E27.8 Other specified disorders of adrenal gland; I10 Essential (primary) hypertension; M19.90 Unspecified osteoarthritis, unspecified site; E78.00 Pure hypercholesterolemia, unspecified; F17.210 Nicotine dependence, cigarettes, uncomplicated; Z79.899 Other long term (current) drug therapy; Z79.01 Long term (current) use of anticoagulants; W18.30XA Fall on same level, unspecified, initial encounter
CPT/HCPCS: 36415; 70450; 72125; 72131; 74177; 80053; 81001; 85025; 85610; 96374; 96376; 99285; J3010; J7050; Q9967